=== PATIENT | female | born 2000 | race Caucasian/White ===

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

== ENCOUNTER → 2021-01-07 | Outpatient (CLI) | payer OTHER ==
--- NOTE | 2021-01-07 10:50 | MR ---
MRI brain without contrast HISTORY: Blackout, R55 Multiplanar multisequence imaging to the brain, no comparisons There is no restricted diffusion. There is no hemorrhage or hydrocephalus. Brain signal is remarkable for a small focal area of increased signal on inversion recovery T2-weighted sequences, axial image 15 in the right frontal white matter measuring 6 mm. Corpus callosum, pituitary, cervical medullary j unction, cerebellopontine angles are normal. Inflammatory changes present in the maxillary sinuses, e thmoid air cells. There are expected vascular flow voids noted. IMPRESSION: Nonspecific focus of white matter demyelination of questionable clinical significance. Si nus disease.
== END | disposition home or self-care (01) ==
LOC: RADMRIMAIN 09:05
PROVIDERS: ATTEND Psychiatry & Neurology Neurology
DX: R55 Syncope and collapse (principal)
CPT/HCPCS: 70551

== ENCOUNTER → 2021-02-16 | Outpatient (CLI) | payer OTHER ==
--- NOTE | 2021-02-16 22:16 | CONS ---
CONSULTATION DATE OF SERVICE: 02/16/2021 20-year-old lady has been evaluated in [facility] for significant excessive daytime sleepiness. HISTORY OF PRESENT ILLNESS SLEEP-WAKE EVALUATION: The patient referred sleepiness for a couple of years. SLEEP SCHEDULE: Her sleep schedule on weekdays from midnight until 12 noon/1:00 pm and on weekends from midnight until 4:30 p.m. FALLING ASLEEP: She does have problems with falling asleep, has TV set in bedroom. DURING SLEEP: She usually sleeps on the side position and stomach, she does snore, but nobody did mention that she has episodes of stopped breathing during sleep. She wakes up from sleep 5 times with 2 episodes of nocturia. No history of hypnagogic hallucinations, sleep paralysis or cataplexy. DURING THE DAY/SLEEP WAKE EVALUATION: In the morning during the day after awakenings, the patient wakes up tired, has difficulties to pay attention, falling asleep during the day, has problems with memory, concentration, irritability. [place] Sleepiness Scale is in extremely high range of 21 which include indication of possible sleepiness while stopped a few minutes in traffic light. The patient had history of episodes of stopped breathing during sleep in the past before her tonsils have been removed. After tonsils have been removed, no episodes of stopped breathing has been observed. PAST MEDICAL HISTORY: Positive for ear infection in the past. PAST SURGICAL HISTORY: Tonsillectomy, ear tube insertion in the past. MEDICATIONS: None. SOCIAL HISTORY: Negative for smoking. Alcohol consumption extremely rare. REVIEW OF SYSTEMS: Significant excessive daytime sleepiness, multiple awakenings from sleep. FAMILY HISTORY: Of epilepsy, thyroid problems, mental illness, seizures. PHYSICAL EXAMINATION: GENERAL: lady without distress. BP 107/70, HR 87, RR 15, height 5 feet 5 inches, weight 228.8 pounds, body mass index 37.9, temperature 97.8, oxygen saturation at room air 97%. Oropharynx: Average position of the soft palate. Mallampati 2. Neck is wide 17 inches in circumference. Neck: Supple, no JVD. Thyroid is not palpable. LUNGS: Clear to percussion and to auscultation. Good air exchange. No wheezing or rhonchi. HEART: S1, S2 regular. No murmurs, gallops, or rubs. ABDOMEN: Obese. Body mass index 37.9. Soft and nontender. Bowel sounds are present. No organomegaly appreciated. EXTREMITIES: No clubbing or cyanosis. CHEMIST: Awake, alert, and oriented X3. Cranial nerves 2 to 7 intact. There is no fasciculation or atrophy. noted. No focal deficits observed. IMPRESSION: 1. Mild snoring multiple awakenings from sleep, wide neck, sleepiness, possible obstructive sleep apnea-hypopnea syndrome. 2. Extremely high level of sleepiness. [place] Sleepiness Scale 21. The patient sleeps for 12 hours or more indicate possibility of idiopathic hypersomnia. 3. Obesity, body mass index 37.9. 4. Status post tonsillectomy. 5. Status post ear infection with ear tube insertion. PLAN: 1. Polysomnography for evaluation of patient's breathing during sleep. If sleep study is negative for abnormalities of respiration, multiple sleep latency test for objective evaluation, patient symptoms of sleepiness. 2. CPAP/BiPAP titration if sleep study confirms obstructive sleep apnea-hypopnea syndrome. 3. Preferable position during sleep on the side. 4. No driving if patient feels any sleepiness. 5. I will see patient for follow up visit to explain results of testing and following plan. Thank you very much for referring this patient for consultation. Sincerely, Jerry Cisneros MD, PhD, FAASM Diplomat of [employer] Sleep Medicine Board of [place] [employer] Back Pad Inspector of [facility] [place] CASIE / ROJELIO: [id number] /
== END | disposition home or self-care (01) ==
LOC: SLEEP 15:29
PROVIDERS: ATTEND Internal Medicine
DX: G47.33 Obstructive sleep apnea (adult) (pediatric) (principal); E66.9 Obesity, unspecified; Z68.37 Body mass index [BMI] 37.0-37.9, adult

== ENCOUNTER 2021-09-07 21:33 | Emergency (ER) | payer OTHER ==
[2021-09-07 22:42] VITALS: BP 105/74; PULSE 87; RESP 19; TEMP 98
[2021-09-07] MEDS ORDERED: ACETAMINOPHEN TAB 500 MG TAB PO STA (22:42)
--- NOTE | 2021-09-07 23:01 | XR ---
EXAMINATION TYPE: XR ankle complete LT DATE OF EXAM: 09/07/2021 COMPARISON: NONE HISTORY: Pain TECHNIQUE: 3 views FINDINGS: Ankle mortise is anatomic. I see no fracture nor dislocation. Joint spaces are normal. IMPRESSION: Negative left ankle exam.
--- NOTE | 2021-09-07 23:06 | XR ---
EXAMINATION TYPE: XR foot complete LT DATE OF EXAM: 09/07/2021 COMPARISON: NONE HISTORY: Foot pain TECHNIQUE: 3 views FINDINGS: I see no fracture nor dislocation. Joint spaces are normal. Metatarsals are intact. There a re no erosions. IMPRESSION: Negative left foot exam.
--- NOTE | 2021-09-08 00:55 | ED ---
Lower Extremity Injury HPI - General Chief Complaint: Extremity Injury, Lower Stated Complaint: Left Ankle Injury Time Seen by Provider: 09/08/21 00:33 Source: patient, RN notes reviewed Mode of arrival: wheelchair - History of Present Illness Initial Comments: This is a pleasant 20-year-old female presents in respiratory after she twisted her ankle earlier today when she was walking through a parking lot. She describes inversion type injury. Pain at the lateral aspect of the ankle which is exacerbated by attempted walking and palpation. No distal paresthesias. No distal proximal injury. Patient states she does have weak ankles and tends to sprain them quite often. She can bear weight with increased pain. No headache, no fever or chills, no changes in vision or hearing, no sore throat or difficulty with speech, no neck pain, no chest pain or shortness of breath, no abdominal pain, no nausea or vomiting, no changes in urination or bowel m ovements, no numbness or tingling,, no skin rashes or lesions. - Related Data Previous Rx's Medication Instructions Recorded Acetaminophen [Tylenol] 500 mg PO Q4-6H PRN #24 tab 09/08/21 Ibuprofen [Motrin] 600 mg PO Q8HR PRN #30 tab 09/08/21 Allergies Allergy/AdvReac Type Severity Reaction Status Date / Time No Known Allergies Allergy Verified 09/07/21 22:42 Review of Systems ROS Statement: Those systems with pertinent positive or pertinent negative responses have been documented in the HPI. ROS Other: All systems not noted in ROS Statement are negative. Past Medical History Past Medical History: Asthma Additional Past Medical History / Comment(s): eczema, depression, self harm behaviors History of Any Multi-Drug Resistant Organisms: None Reported Past Surgical History: Ear Surgery, Tonsillectomy Past Psychological History: ADD/ADHD, Anxiety, Depression Smoking Status: Never smoker Past Alcohol Use History: None Reported Past Drug Use History: None Reported General Exam General appearance: alert, in no apparent distress Head exam: Present: atraumatic, normocephalic, normal inspection Eye exam: Present: normal appearance, PERRL, EOMI. Absent: scleral icterus, conjunctival injection, periorbital swelling ENT exam: Present: normal exam, mucous membranes moist Neck exam: Present: normal inspection, full ROM. Absent: tenderness, meningismus, lymphadenopathy Respiratory exam: Present: normal lung sounds bilaterally. Absent: respiratory distress, wheezes, rales, rhonchi, stridor Cardiovascular Exam: Present: regular rate, normal rhythm, normal heart sounds. Absent: systolic murmur, diastolic murmur, rubs, gallop, clicks GI/Abdominal exam: Present: soft, normal bowel sounds. Absent: distended, tenderness, guarding, rebound, rigid Extremities exam: Present: full ROM, tenderness (Patient has tenderness over the ATF ligament. There is mild swelling.), normal capillary refill, joint swelling (Mild bilateral ankle swelling. No break in skin integrity), other (Pedal pulses intact. Distal sensation intact. No distal proximal tenderness. No tenderness to the proximal fifth metatarsal). Absent: normal inspection (Swelling noted), pedal edema, calf tenderness Back exam: Present: normal inspection Neurological exam: Present: alert, oriented X3, CN II-XII intact Psychiatric exam: Present: normal affect, normal mood Skin exam: Present: warm, dry, intact, normal color. Absent: rash Course Vital Signs 09/07/21 22:38 Temperature 98 F Pulse Rate 87 Respiratory 19 Rate Blood Pressure 105/74 O2 Sat by Pulse 100 Oximetry Procedures - Orthopedic Splinting/Casting Injury #1 Side: left Lower Extremity Injury Location: ankle Lower Extremity Immobilizer: stirrup splint Additional Comments: Neurovascular status intact both pre-and post-application Medical Decision Making - Medical Decision Making Patient presents to symptomology consistent with an anterior talofibular ligament sprain. Patient placed and a stirrup splint. Neurovascular intact. Discussed the possibility of occult fracture. We'll treat with anti- inflammatory medication acetaminophen. Rice therapy. Patient voiced understanding. All questions answered Patient was told to return to the ER for any signs or symptoms worsen. Told to return immediately if any other problems arise. All questions answered. Treatment plan discussed. Patient in agreement Every effort has been made to ensure accuracy of this dictation. However, due to the limitations of electronic medical records and dictation devices, errors in charting still occur. Purchasing Coordinator Dr. Juarez - Radiology Data Radiology results: report reviewed, image reviewed Disposition Clinical Impression: Sprain of anterior talofibular ligament of left ankle Disposition: HOME SELF-CARE Condition: Good Instructions (If sedation given, give patient instructions): Ankle Sprain (ED) Additional Instructions: Follow-up with your regular physician as directed. Return to the ER immediately if any symptoms worsen, new symptoms arise, or any other problems develop. Air splint as directed. He can take it off when you're not bearing weight. Apply ice 20 minutes on and off for times daily. If the ankle does not seem to get better over the next several days call the orthopedic doctor as discussed. Prescriptions: Ibuprofen [Motrin] 600 mg PO Q8HR PRN #30 tab PRN Reason: Pain Acetaminophen [Tylenol] 500 mg PO Q4-6H PRN #24 tab PRN Reason: Pain Is patient prescribed a controlled substance at d/c from ED?: No Referrals: Tip English MD [STAFF PHYSICIAN] - 09/15/21 Time of Disposition: 01:03
[2021-09-08] MEDS ORDERED: IBUPROFEN 600 MG TAB PO STA (01:01)
== END 2021-09-08 01:09 | disposition home or self-care (01) ==
LOC: EC 21:33
DX: S93.492A Sprain of other ligament of left ankle, initial encounter (principal); J45.909 Unspecified asthma, uncomplicated; Y92.481 Parking lot as the place of occurrence of the external cause

== ENCOUNTER 2022-03-17 23:09 | Emergency (ER) | payer OTHER ==
[2022-03-18] MEDS ORDERED: SODIUM CHLORIDE 0.9% 1,000 ML IV STA (00:12)
[2022-03-18 00:51] LABS: Basophils % (A) 0 %; Eosinophils # (A) 0.2 k/uL (0-0.7); Eosinophils % (A) 2 %; HCT 39.8 % (34.0-46.0); HGB 13.7 gm/dL (11.4-16.0); Lymphocytes # (A) 1.8 k/uL (1.0-4.8); Lymphocytes % (A) 20 %; MCH 29.4 pg (25.0-35.0); MCHC 34.4 g/dL (31.0-37.0); MCV 85.6 fL (80.0-100.0); Mean Platelet Volume 8.4; Monocytes # (A) 0.6 k/uL (0-1.0); Monocytes % (A) 6 %; Neutrophils # (A) 6.3 k/uL (1.3-7.7); Neutrophils % (A) 70 %; Platelet Count 286 k/uL (150-450); RBC 4.65 m/uL (3.80-5.40); RDW 13.3 % (11.5-15.5); WBC 9.1 k/uL (4.0-11.0)
[2022-03-18 01:00] LABS: INR 0.9 (<1.2); Partial Thromboplastin Time 26.1 sec (22.0-30.0); Prothrombin Time 10.1 sec (9.0-12.0)
[2022-03-18 01:04] LABS: ALT 24 U/L (4-34); AST 22 U/L (14-36); African American GFR (CKD) >90 (>60 ml/min/1.73 sqM); Albumin 4.3 g/dL (3.5-5.0); Alkaline Phosphatase 70 U/L (38-126); Anion Gap 11 mmol/L; Blood Urea Nitrogen 8 mg/dL (7-17); Calcium 9.9 mg/dL (8.4-10.2); Carbon Dioxide 23 mmol/L (22-30); Chloride 102 mmol/L (98-107); Glucose 107 mg/dL (74-99); Non-African American GFR(CKD) >90 (>60 ml/min/1.73 sqM); Sodium 136 mmol/L (137-145); Total Bilirubin 0.4 mg/dL (0.2-1.3)
--- NOTE | 2022-03-18 02:36 | ED ---
General Adult HPI - General Chief complaint: Anxiety Stated complaint: psych Time Seen by Provider: 03/17/22 23:40 Source: patient Mode of arrival: ambulatory - History of Present Illness Initial comments: 21-year-old female with past history of asthma, depression presents emergency department reporting presyncopal episode. She states that she got home from work around 6 PM she was playing Dungeons and Dragons when she had sudden onset of lightheadedness and shakiness. She felt nauseated and ran to the bathroom where she had some dry heaving. She does admit to previous episodes of this in the past. States that she felt like she was "not in control of her body". Patient is 7 weeks . States that she is following with [facility]. She has had laboratory studies conducted however has her first ultrasound appointment on Sunday. Denies dysuria, hematuria or difficulty voiding. No diarrhea, constipation, black or bloody stools. Denies any abnormal vaginal bleeding or discharge. No vaginal cramping. No other alleviating, precipitating or modifying factors - Related Data Previous Rx's Medication Instructions Recorded Acetaminophen [Tylenol] 500 mg PO Q4-6H PRN #24 tab 09/08/21 Ibuprofen [Motrin] 600 mg PO Q8HR PRN #30 tab 09/08/21 Allergies Allergy/AdvReac Type Severity Reaction Status Date / Time No Known Allergies Allergy Verified 09/07/21 22:42 Review of Systems ROS Statement: Those systems with pertinent positive or pertinent negative responses have been documented in the HPI. ROS Other: All systems not noted in ROS Statement are negative. Past Medical History Past Medical History: Asthma Additional Past Medical History / Comment(s): eczema, depression, self harm behaviors History of Any Multi-Drug Resistant Organisms: None Reported Past Surgical History: Ear Surgery, Tonsillectomy Past Psychological History: ADD/ADHD, Anxiety, Depression Smoking Status: Never smoker Past Alcohol Use History: None Reported Past Drug Use History: None Reported General Exam General appearance: alert, in no apparent distress Head exam: Present: atraumatic, normocephalic, normal inspection Eye exam: Present: normal appearance, PERRL, EOMI. Absent: scleral icterus, conjunctival injection, periorbital swelling ENT exam: Present: normal exam, mucous membranes moist Neck exam: Present: normal inspection. Absent: tenderness, meningismus, lymphadenopathy Respiratory exam: Present: normal lung sounds bilaterally. Absent: respiratory distress, wheezes, rales, rhonchi, stridor Cardiovascular Exam: Present: regular rate, normal rhythm, normal heart sounds. Absent: systolic murmur, diastolic murmur, rubs, gallop, clicks GI/Abdominal exam: Present: soft, normal bowel sounds. Absent: distended, tenderness, guarding, rebound, rigid Extremities exam: Present: normal inspection, full ROM, normal capillary refill. Absent: tenderness, pedal edema, joint swelling, calf tenderness Back exam: Present: normal inspection Neurological exam: Present: alert, oriented X3, CN II-XII intact Psychiatric exam: Present: normal affect, normal mood Skin exam: Present: warm, dry, intact, normal color. Absent: rash Course Vital Signs 03/17/22 03/18/22 23:35 02:54 Temperature 98 F 98.4 F Pulse Rate 98 84 Respiratory 17 16 Rate Blood Pressure 133/87 118/57 O2 Sat by Pulse 99 98 Oximetry EKG Findings - EKG Comments: EKG Findings:: EKG at 2:14 AM demonstrates sinus rhythm with a rate of 78. [place] interval 162. QRS 92. QTC 416. No acute ST segment elevations or depressions concerning for ischemic changes EKG was interpreted by myself Medical Decision Making - Medical Decision Making Upon arrival patient was placed into room 3. A thorough history and physical exam was performed. Patient placed on continuous pulse ox and cardiac monitoring. A 12-lead EKG is obtained. Laboratory studies are conducted. She was given a liter bolus of normal saline. Laboratory studies are reviewed and within normal limits. 12 EKG unremarkable. Discuss results with the patient. Patient is agreeable to discharge home at this time. Instructed to rest, increase fluid intake. Follow up with her OB at her appointment next week and return for any new or worsening symptoms. Patient agreeable to the plan and she was discharged home in stable condition - Lab Data Result diagrams: 03/18/22 00:41 03/18/22 00:41 Lab Results 03/18/22 03/18/22 03/18/22 Range/Units 00:41 00:41 00:41 WBC 9.1 (4.0-11.0) k/uL RBC 4.65 (3.80-5.40) m/uL Hgb 13.7 (11.4-16.0) gm/dL Hct 39.8 (34.0-46.0) % MCV 85.6 (80.0-100.0) fL MCH 29.4 (25.0-35.0) pg MCHC 34.4 (31.0-37.0) g/dL RDW 13.3 (11.5-15.5) % Plt Count 286 (150-450) k/uL MPV 8.4 Neutrophils % 70 % Lymphocytes % 20 % Monocytes % 6 % Eosinophils % 2 % Basophils % 0 % Neutrophils # 6.3 (1.3-7.7) k/uL Lymphocytes # 1.8 (1.0-4.8) k/uL Monocytes # 0.6 (0-1.0) k/uL Eosinophils # 0.2 (0-0.7) k/uL Basophils # 0.0 (0-0.2) k/uL PT 10.1 (9.0-12.0) sec INR 0.9 (<1.2) APTT 26.1 (22.0-30.0) sec Sodium 136 L (137-145) mmol/L Potassium 4.0 (3.5-5.1) mmol/L Chloride 102 (98-107) mmol/L Carbon Dioxide 23 (22-30) mmol/L Anion Gap 11 mmol/L BUN 8 (7-17) mg/dL Creatinine 0.59 (0.52-1.04) mg/dL Est GFR (CKD-EPI)AfAm >90 (>60 ml/min/1.73 sqM) Est GFR (CKD-EPI)NonAf >90 (>60 ml/min/1.73 sqM) Glucose 107 H (74-99) mg/dL Calcium 9.9 (8.4-10.2) mg/dL Magnesium 2.0 (1.6-2.3) mg/dL Total Bilirubin 0.4 (0.2-1.3) mg/dL AST 22 (14-36) U/L ALT 24 (4-34) U/L Alkaline Phosphatase 70 (38-126) U/L Troponin I (0.000-0.034) ng/mL Total Protein 7.0 (6.3-8.2) g/dL Albumin 4.3 (3.5-5.0) g/dL 03/18/22 Range/Units 00:41 WBC (4.0-11.0) k/uL RBC (3.80-5.40) m/uL Hgb (11.4-16.0) gm/dL Hct (34.0-46.0) % MCV (80.0-100.0) fL MCH (25.0-35.0) pg MCHC (31.0-37.0) g/dL RDW (11.5-15.5) % Plt Count (150-450) k/uL MPV Neutrophils % % Lymphocytes % % Monocytes % % Eosinophils % % Basophils % % Neutrophils # (1.3-7.7) k/uL Lymphocytes # (1.0-4.8) k/uL Monocytes # (0-1.0) k/uL Eosinophils # (0-0.7) k/uL Basophils # (0-0.2) k/uL PT (9.0-12.0) sec INR (<1.2) APTT (22.0-30.0) sec Sodium (137-145) mmol/L Potassium (3.5-5.1) mmol/L Chloride (98-107) mmol/L Carbon Dioxide (22-30) mmol/L Anion Gap mmol/L BUN (7-17) mg/dL Creatinine (0.52-1.04) mg/dL Est GFR (CKD-EPI)AfAm (>60 ml/min/1.73 sqM) Est GFR (CKD-EPI)NonAf (>60 ml/min/1.73 sqM) Glucose (74-99) mg/dL Calcium (8.4-10.2) mg/dL Magnesium (1.6-2.3) mg/dL Total Bilirubin (0.2-1.3) mg/dL AST (14-36) U/L ALT (4-34) U/L Alkaline Phosphatase (38-126) U/L Troponin I <0.012 (0.000-0.034) ng/mL Total Protein (6.3-8.2) g/dL Albumin (3.5-5.0) g/dL Disposition Clinical Impression: Pre-syncope Disposition: HOME SELF-CARE Condition: Stable Instructions (If sedation given, give patient instructions): Near Syncope (ED) Additional Instructions: Please follow-up with your primary care doctor in 2-4 days and return for any new or worsening symptoms. Is patient prescribed a controlled substance at d/c from ED?: No Referrals: None,Stated [Primary Care Provider] - 1-2 days Time of Disposition: 02:36
[2022-03-18 02:55] VITALS: BP 118/57; PULSE 84; RESP 16; TEMP 98.4
== END 2022-03-18 02:54 | disposition home or self-care (01) ==
LOC: EC 23:09
DX: O26.811 Pregnancy related exhaustion and fatigue, first trimester (principal); O99.511 Diseases of the respiratory system complicating pregnancy, first trimester; O99.341 Other mental disorders complicating pregnancy, first trimester; R55 Syncope and collapse; J45.909 Unspecified asthma, uncomplicated; F41.9 Anxiety disorder, unspecified; F32.A Depression, unspecified; Z3A.01 Less than 8 weeks gestation of pregnancy
CPT/HCPCS: 36415; 80053; 83735; 84484; 85025; 85610; 85730; 99284

== ENCOUNTER 2022-07-09 22:50 | Outpatient (CLI) | payer OTHER ==
[2022-07-09] MEDS ORDERED: ACETAMINOPHEN TAB 325 MG TAB PO STA (23:37)
[2022-07-09 23:51] LABS: Basophils % (A) 0 %; Eosinophils # (A) 0.1 k/uL (0-0.7); Eosinophils % (A) 1 %; HCT 34.5 % (34.0-46.0); Lymphocytes # (A) 2.1 k/uL (1.0-4.8); Lymphocytes % (A) 19 %; MCH 30.5 pg (25.0-35.0); MCHC 34.8 g/dL (31.0-37.0); MCV 87.5 fL (80.0-100.0); Mean Platelet Volume 8.3; Monocytes # (A) 0.5 k/uL (0-1.0); Monocytes % (A) 5 %; Neutrophils # (A) 8.2 k/uL (1.3-7.7); Neutrophils % (A) 74 %; Platelet Count 283 k/uL (150-450); RBC 3.94 m/uL (3.80-5.40); RDW 14.4 % (11.5-15.5); WBC 11.1 k/uL (4.0-11.0)
[2022-07-10 00:08] LABS: ALT 15 U/L (4-34); African American GFR (CKD) >90 (>60 ml/min/1.73 sqM); Amylase 42 U/L (30-110); Anion Gap 9 mmol/L; Blood Urea Nitrogen 7 mg/dL (7-17); Calcium 8.9 mg/dL (8.4-10.2); Carbon Dioxide 21 mmol/L (22-30); Chloride 105 mmol/L (98-107); Glucose 81 mg/dL (74-99); Lipase 46 U/L (23-300); Non-African American GFR(CKD) >90 (>60 ml/min/1.73 sqM); Sodium 135 mmol/L (137-145); Total Bilirubin 0.5 mg/dL (0.2-1.3)
[2022-07-10 00:15] LABS: AST 21 U/L (14-36); Alkaline Phosphatase 60 U/L (38-126); Potassium 4.3 mmol/L (3.5-5.1)
[2022-07-10 00:40] VITALS: BP 122/71; PULSE 88; RESP 16; TEMP 97.3
== END 2022-07-10 00:30 | disposition home or self-care (01) ==
LOC: FBPOP 22:50
PROVIDERS: ATTEND Obstetrics & Gynecology
DX: O26.893 Other specified pregnancy related conditions, third trimester (principal); R10.11 Right upper quadrant pain; Z3A.00 Weeks of gestation of pregnancy not specified
CPT/HCPCS: 36415; 86900; 86901; 80053; 82150; 83690; 85025; 86850; G0463; 99213

== ENCOUNTER 2022-10-31 08:02 | Inpatient (IN) | payer OTHER ==
[2022-10-31] MEDS ORDERED: TERBUTALINE 1 MG/ML VIAL SQ PRN (08:21)
[2022-10-31] MEDS ORDERED: METHYLERGONOVINE 0.2 MG/ML 1 ML AMP IM PRN (08:21)
[2022-10-31] MEDS ORDERED: CARBOPROST TROMETHAMINE 250 MCG/ML 1 ML AMP IM PRN (08:21)
[2022-10-31] MEDS ORDERED: OXYTOCIN 10 UNIT/ML 1 ML VIAL IM PRN (08:21)
[2022-10-31] MEDS ORDERED: miSOPROStoL 200 MCG TAB PO PRN (08:21)
[2022-10-31] MEDS ORDERED: TRANEXAMIC 1,000 MG/100ML-NACL 1,000 MG in EMPTY BAG 1 BAG IV PRN (08:21)
[2022-10-31] MEDS ORDERED: LIDOCAINE 0.5% (PF) 5 MG/ML (50 ML SDV) SQ PRN (08:21)
[2022-10-31] MEDS ORDERED: OXYTOCIN 30 UNITS/500 ML NS 30 UNIT in SALINE 1 500ML.BAG IV SCH ×2 (08:30→19:15)
[2022-10-31] MEDS: LACTATED RINGERS 1,000 ML IV SCH ×3 (08:52→14:53)
[2022-10-31 09:08] LABS: Basophils % (A) 0 %; Eosinophils # (A) 0.1 k/uL (0-0.7); Eosinophils % (A) 1 %; HCT 34.3 % (34.0-46.0); HGB 11.4 gm/dL (11.4-16.0); Lymphocytes # (A) 1.8 k/uL (1.0-4.8); Lymphocytes % (A) 19 %; MCH 28.4 pg (25.0-35.0); MCHC 33.1 g/dL (31.0-37.0); MCV 85.9 fL (80.0-100.0); Mean Platelet Volume 10.7; Monocytes # (A) 0.5 k/uL (0-1.0); Monocytes % (A) 5 %; Neutrophils # (A) 7.2 k/uL (1.3-7.7); Neutrophils % (A) 74 %; Platelet Count 223 k/uL (150-450); RBC 3.99 m/uL (3.80-5.40); RDW 14.1 % (11.5-15.5); WBC 9.7 k/uL (3.8-10.6)
--- NOTE | 2022-10-31 11:59 | P.HPOB ---
History of Present Illness H&P Date: 10/31/22 Chief Complaint: 39-6/7 weeks, spontaneous rupture of membranes, labor The patient is a 22-year-old 1 para 0 admitted at 39-6/7 weeks as established by last menstrual period and confirmed by 21 week ultrasound. She is admitted in early labor with spontaneous rupture of membranes confirmed, clear fluid, with all signs reassuring, category 1 heart rate tracing. Her has been essentially uncomplicated though she is Rh- and received RhoGAM at 28 weeks. She additionally is known to be rubella nonimmune. Obstetrical history: 1 para 0 with current statistics listed in history present illness. EDC of 11/01/2022 was established by last menstrual period and confirmed by 21 week ultrasound. Laboratory workup demonstrates a blood type of A- with a negative antibody screen. Rubella status is nonimmune. Remainder of the laboratory workup was within normal limits. Early Glucola and second trimester Glucola were both normal. Group B strep status is negative. Gynecologic history: Unremarkable with no history of any infections to include STDs. Review of Systems Review of systems is confined to history of present illness. Past Medical History Past Medical History: Asthma Additional Past Medical History / Comment(s): eczema, depression, self harm behaviors History of Any Multi-Drug Resistant Organisms: None Reported Past Surgical History: Ear Surgery, Tonsillectomy Past Anesthesia/Blood Transfusion Reactions: No Reported Reaction Past Psychological History: ADD/ADHD, Anxiety, Depression Smoking Status: Never smoker Past Alcohol Use History: None Reported Past Drug Use History: None Reported - Past Family History Mother Family Medical History: Diabetes Mellitus Medications and Allergies Home Medications Medication Instructions Recorded Confirmed Type Pnv No.154/Iron Fum/Folic Acid 1 capsule PO DAILY 07/09/22 10/31/22 History [ Plus Vitamin Tablet] Allergies Allergy/AdvReac Type Severity Reaction Status Date / Time No Known Allergies Allergy Verified 10/31/22 08:16 Exam Vital Signs Temp Pulse Resp BP Pulse Ox 10/31/22 08:51 97.4 F L 65 18 132/84 97 Intake and Output 10/30/22 10/31/22 10/31/22 22:59 06:59 14:59 Other: Weight 118.841 kg In general, this is a moderately obese white female in no acute distress. Her heart has a regular rhythm and rate without murmur. Her lungs are clear to auscultation bilaterally in all sarmiento. Her abdomen is gravid, nondistended, has normal active bowel sounds, soft, nontender, and without any palpable masses aside from uterine fundus. Her extremities are without any cyanosis, clubbing, or edema and are nontender to palpation bilaterally. Digital cervical examination demonstrates her cervix to be 3 cm dilated, 80% effaced, with the vertex in presentation at -2 station. Spontaneous rupture of membranes has been confirmed. Results Result Diagrams: 10/31/22 08:50 Assessment and Plan (1) Spontaneous rupture of amniotic membranes Current Visit: Yes Status: Acute Code(s): [id number] - SNOMED Code(s): 562346884 (2) Active labor at term Current Visit: Yes Status: Acute Code(s): RTW6777 - SNOMED Code(s): 13527843 Plan: The patient has been admitted for active management of labor. She will have close maternal and surveillance and expectant management will be practiced. She is a good candidate for either IV or epidural analgesia, whichever she may choose. We will start Pitocin augmentation at this time.
[2022-10-31] MEDS ORDERED: ROPIVACAINE 5 MG/ML 20 ML AMPULE ONE (13:30)
[2022-10-31] MEDS ORDERED: fentaNYL (PF) 50 MCG/ML 5 ML AMP ONE (13:30)
[2022-10-31] MEDS ORDERED: SODIUM CHLORIDE 0.9% 100 ML BAG ONE (13:30)
[2022-10-31] MEDS ORDERED: diphenhydrAMINE 25 MG CAP PO PRN (19:06)
[2022-10-31] MEDS ORDERED: diphenhydrAMINE 50 MG CAP PO PRN (19:06)
[2022-10-31] MEDS ORDERED: LANOLIN CREAM 5 GM TUBE TOPICAL PRN (19:06)
[2022-10-31] MEDS ORDERED: Rhogam IMMUNE GLOBULIN 1,500 UNIT/1 ML IM ONE (19:06)
[2022-10-31] MEDS ORDERED: diphenhydrAMINE 50 MG/ML 1 ML VIAL IVP PRN ×2 (19:06)
[2022-10-31] MEDS ORDERED: SIMETHICONE 80 MG CHEWABLE PO PRN (19:06)
[2022-10-31] MEDS ORDERED: HYDROCORTISONE 2.5% RECTAL CREAM 30 GM TUBE RECTAL PRN (19:06)
[2022-10-31] MEDS ORDERED: ZOLPIDEM 5 MG TAB PO PRN (19:06)
[2022-10-31] MEDS ORDERED: BENZOCAINE/MENTHOL SPRAY 1 GM/SPRAY AEROSOL TOPICAL PRN (19:06)
--- NOTE | 2022-10-31 19:16 | P.PROBDLV ---
Vaginal Delivery Note - . Vaginal Delivery Note: DATE OF SERVICE: 10/31/2022 PROCEDURE: Normal Vaginal Delivery ATTENDING: Dr. July Nath MD ESTIMATED BLOOD LOSS: 200 mL FINDINGS: VFI, Apgars 9/9. Weight 7 pounds, 5 ounces (3320 grams) PROCEDURE: Ms. Galan is a 22 year old at 39 weeks and 2 days presenting to labor and delivery after spontaneous rupture of membranes and found to be 3 centimeters dilated with regular contractions. The has been uncomplicated. For further details, please review the admitting H&P. Pitocin augmentation of labor was started. The patient progressed to complete dilation by 175. She pushed effectively and delivered the head over an intact perineum followed by shoulders and body. A viable female infant was delivered at 1816. The was placed on the maternal abdomen and bulb suctioned. Cord was clamped and cut after a 30-second delay. The was handed off to the pediatric team. Placenta was delivered whole with gentle cord traction at 1818. Oxytocin was started to facilitate uterine tone. Uterine fundus was found to be firm and below the umbilicus upon fundal massage. Thorough examination of the cervix, vagina, periurethral area, and perineum revealed a left labial laceration and a left sulcal laceration. These were repaired with 3-0 Vicryl in a running fashion with excellent hemostasis noted. The patient is stable and allowed to begin the bonding process. Patient stable .
[2022-10-31] MEDS: IBUPROFEN 600 MG TAB PO PRN (19:55)
[2022-10-31] MEDS ORDERED: MEASLES-MUMPS-RUBELLA VACC/PF 12,500 UNIT/0.5 ML VIAL SQ ONE (22:17)
[2022-10-31] MEDS: SENNOSIDES-DOCUSATE SODIUM 1 EACH TAB PO SCH (22:23)
[2022-11-01] MEDS: ACETAMINOPHEN TAB 325 MG TAB PO PRN ×2 (00:16→06:41)
[2022-11-01] MEDS: IBUPROFEN 600 MG TAB PO PRN ×3 (03:10→15:25)
[2022-11-01 08:01] LABS: Basophils % (A) 0 %; Eosinophils # (A) 0.1 k/uL (0-0.7); Eosinophils % (A) 1 %; HCT 26.3 % (34.0-46.0); HGB 8.9 gm/dL (11.4-16.0); Hypochromasia Slight; Lymphocytes # (A) 1.5 k/uL (1.0-4.8); Lymphocytes % (A) 15 %; MCH 29.1 pg (25.0-35.0); MCHC 33.9 g/dL (31.0-37.0); MCV 85.8 fL (80.0-100.0); Mean Platelet Volume 11.2; Monocytes # (A) 0.7 k/uL (0-1.0); Monocytes % (A) 7 %; Neutrophils # (A) 7.9 k/uL (1.3-7.7); Neutrophils % (A) 76 %; Platelet Count 182 k/uL (150-450); RBC 3.06 m/uL (3.80-5.40); RDW 14.3 % (11.5-15.5); WBC 10.4 k/uL (3.8-10.6)
--- NOTE | 2022-11-01 08:33 | P.DS ---
Providers Date of admission: 10/31/22 08:32 Expected date of discharge: 11/01/22 Attending physician: Keny Castañeda Primary care physician: Stated None - Discharge Diagnosis(es) (1) Spontaneous rupture of amniotic membranes Current Visit: Yes Status: Acute (2) Active labor at term Current Visit: Yes Status: Acute (3) FTND (full term normal delivery) Current Visit: Yes Status: Acute Hospital Course: Patient is a 22-year-old 1 para 0 admitted at 39-6/7 weeks by good dating parameters. She is admitted with documented spontaneous rupture of membranes for clear fluid. All signs reassuring with a category 1 heart rate tracing. Her was uncomplicated though she was Rh- and is additionally rubella nonimmune. Group B strep status is negative. On labor and delivery, she had Pitocin augmentation started and an epidural catheter placed for analgesia. She ultimately progressed to complete and then pushed to a normal spontaneous vaginal delivery of a viable 7 lbs. 5 oz. baby girl with Apga rs of 9 at 1 minute and 9 at 5 minutes. Her course was unremarkable with vital signs being stable and her temperature was afebrile throughout. She was deemed stable for discharge on day #1 was discharged home to follow-up in the office in 6 weeks' time routinely. Discharge instructions included calling for any significantly increased bleeding or foul-smelling lochia, significantly increased fever or abdominal pain, perineal complaints, breast complaints, or anything also concerned her. She was additionally instructed to have nothing in the vagina for at least 6 weeks time to include intercourse. She understood her instructions and agrees to follow up as noted above. Maternal blood type is A- and cord blood was sent for evaluation for the necessity of RhoGAM prior to discharge. Rubella status is nonimmune. The patient was therefore to receive the MMR vaccination prior to discharge. Procedures: #1. Pitocin augmentation #2. Epidural analgesia #3. Normal spontaneous vaginal delivery #4. Repair of labial and sulcus laceration Patient Condition at Discharge: Stable Plan - Discharge Summary New Discharge Prescriptions: No Action Pnv No.154/Iron Fum/Folic Acid [ Plus Vitamin Tablet] 1 capsule PO DAILY Discharge Medication List Pnv No.154/Iron Fum/Folic Acid [ Plus Vitamin Tablet] 1 capsule PO DAILY 07/09/22 [History] Follow up Appointment(s)/Referral(s): Keny Castañeda MD [STAFF PHYSICIAN] - 1 Week Discharge Disposition: HOME SELF-CARE
[2022-11-01] MEDS: SENNOSIDES-DOCUSATE SODIUM 1 EACH TAB PO SCH ×2 (08:44→21:25)
[2022-11-01 15:30] VITALS: BP 108/77; PULSE 86; RESP 15; TEMP 98.2
== END 2022-11-01 21:05 | disposition home or self-care (01) | DRG 560 ==
LOC: FBPOP 08:02 → 4FBP 08:32
PROVIDERS: ADMIT Obstetrics & Gynecology; ATTEND Obstetrics & Gynecology
PROC: 0HQ9XZZ Repair Perineum Skin, External Approach (ICD-10-PCS; principal; 2022-10-31)
PROC: 10E0XZZ Delivery of Products of Conception, External Approach (ICD-10-PCS; principal; 2022-10-31)
PROC: 3E0134Z Introduction of Serum, Toxoid and Vaccine into Subcutaneous Tissue, Percutaneous Approach (ICD-10-PCS; 2022-11-01)
DX: O26.893 Other specified pregnancy related conditions, third trimester (principal); O99.344 Other mental disorders complicating childbirth; F32.A Depression, unspecified; F90.9 Attention-deficit hyperactivity disorder, unspecified type; F41.9 Anxiety disorder, unspecified; O70.0 First degree perineal laceration during delivery; Z67.11 Type A blood, Rh negative; O99.52 Diseases of the respiratory system complicating childbirth; J45.909 Unspecified asthma, uncomplicated; O99.214 Obesity complicating childbirth; E66.9 Obesity, unspecified; Z91.52 Personal history of nonsuicidal self-harm; Z23 Encounter for immunization; Z3A.39 39 weeks gestation of pregnancy; Z37.0 Single live birth
CPT/HCPCS: 59025; 84112; 85025; 86850; 86900; 86901; 90707; 99213

== ENCOUNTER 2022-12-03 10:53 | Emergency (ER) | payer OTHER ==
[2022-12-03 11:35] LABS: Basophils % (A) 0 %; Eosinophils # (A) 0.1 k/uL (0-0.7); Eosinophils % (A) 1 %; HCT 39.8 % (34.0-46.0); Lymphocytes # (A) 1.8 k/uL (1.0-4.8); Lymphocytes % (A) 24 %; MCH 26.8 pg (25.0-35.0); MCHC 32.4 g/dL (31.0-37.0); MCV 82.7 fL (80.0-100.0); Mean Platelet Volume 8.1; Monocytes # (A) 0.4 k/uL (0-1.0); Monocytes % (A) 5 %; Neutrophils # (A) 4.9 k/uL (1.3-7.7); Neutrophils % (A) 67 %; Platelet Count 346 k/uL (150-450); RBC 4.81 m/uL (3.80-5.40); RDW 14.1 % (11.5-15.5); WBC 7.2 k/uL (3.8-10.6)
[2022-12-03 11:42] LABS: HGB 12.9 gm/dL (11.4-16.0)
[2022-12-03 11:44] LABS: Sodium 138 mmol/L (137-145)
[2022-12-03 11:45] LABS: AST 524 U/L (14-36); African American GFR (CKD) >90 (>60 ml/min/1.73 sqM); Albumin 4.5 g/dL (3.5-5.0); Alkaline Phosphatase 408 U/L (38-126); Amylase 47 U/L (30-110); Anion Gap 13 mmol/L; Blood Urea Nitrogen 8 mg/dL (7-17); Calcium 9.6 mg/dL (8.4-10.2); Carbon Dioxide 23 mmol/L (22-30); Chloride 102 mmol/L (98-107); Glucose 120 mg/dL (74-99); Lipase 148 U/L (23-300); Non-African American GFR(CKD) >90 (>60 ml/min/1.73 sqM); Potassium 3.9 mmol/L (3.5-5.1); Total Bilirubin 2.3 mg/dL (0.2-1.3); Total Protein 7.6 g/dL (6.3-8.2)
[2022-12-03] MEDS ORDERED: KETOROLAC 15 MG/ML 1 ML VIAL IVP STA (11:48)
[2022-12-03] MEDS ORDERED: ONDANSETRON 4 MG/2 ML VIAL IVP STA (11:48)
[2022-12-03] MEDS ORDERED: SODIUM CHLORIDE 0.9% 1,000 ML IV STA (11:48)
--- NOTE | 2022-12-03 11:50 | ED ---
Chest Pain HPI - General Chief Complaint: Chest Pain Stated Complaint: Chest/Abd Pain, 4wks post partm Time Seen by Provider: 12/03/22 11:10 Source: patient Mode of arrival: ambulatory Limitations: no limitations - History of Present Illness Initial Comments: 22-year-old female presents to ED with a chief complaint of abdominal pain. Patient states 4 days ago onset of right upper abdominal pain, nausea, vomiting. States she has been unable to keep anything down for the past 4 days due to symptoms. No known association food intake due to her being unable to keep food down. Denies urinary symptoms. Denies diarrhea or constipation. Additionally, patient notes she has history of upper respiratory infection last week where she had a cough. States now cough is resolved however notes over the past 4 days has also had mid chest pain that is sharp in nature. States pain is worse with movement/deep breath. Denies shortness of breath. No other complaints. - Related Data Home Medications Medication Instructions Recorded Confirmed Pnv No.154/Iron Fum/Folic Acid 1 capsule PO DAILY 07/09/22 10/31/22 [ Plus Vitamin Tablet] Previous Rx's Medication Instructions Recorded Ibuprofen [Motrin] 600 mg PO Q8HR PRN #20 tab 12/03/22 Ondansetron [Zofran] 4 mg PO Q8HR PRN #12 tab 12/03/22 Allergies Allergy/AdvReac Type Severity Reaction Status Date / Time No Known Allergies Allergy Verified 12/03/22 11:03 Review of Systems ROS Statement: Those systems with pertinent positive or pertinent negative responses have been documented in the HPI. ROS Other: All systems not noted in ROS Statement are negative. Past Medical History Past Medical History: Asthma Additional Past Medical History / Comment(s): eczema, depression, self harm behaviors History of Any Multi-Drug Resistant Organisms: None Reported Past Surgical History: Ear Surgery, Tonsillectomy Past Anesthesia/Blood Transfusion Reactions: No Reported Reaction Past Psychological History: ADD/ADHD, Anxiety, Depression Smoking Status: Never smoker Past Alcohol Use History: None Reported Past Drug Use History: None Reported - Past Family History Mother Family Medical History: Diabetes Mellitus General Exam Limitations: no limitations General appearance: alert, in no apparent distress ENT exam: Present: mucous membranes moist Respiratory exam: Present: normal lung sounds bilaterally, other (Reproducible mid sternal chest wall tenderness to palpation.) Cardiovascular Exam: Present: regular rate, normal rhythm GI/Abdominal exam: Present: soft (Diffuse abdominal tenderness to palpation worse in the right upper quadrant with positive Kitchen sign.), normal bowel sounds Neurological exam: Present: alert, oriented X3 Skin exam: Present: warm, dry Course Vital Signs 12/03/22 12/03/22 12/03/22 10:58 11:32 12:07 Temperature 97.6 F Pulse Rate 68 58 L 52 L Respiratory 18 20 17 Rate Blood Pressure 143/93 138/96 145/89 O2 Sat by Pulse 100 100 99 Oximetry 12/03/22 14:14 Temperature 98.4 F Pulse Rate 65 Respiratory 18 Rate Blood Pressure 130/83 O2 Sat by Pulse 98 Oximetry Chest Pain MDM - MDM Was pt. sent in by a medical professional or institution ([facility], [facility], urgent care, hospital, or shelter...) When possible be specific @ -No Did you speak to anyone other than the patient for history (EMS, parent, family, police, friend...)? What history was obtained from this source @ -No Did you review nursing and triage notes (agree or disagree)? Why? @ -I reviewed and agree with nursing and triage notes Were old charts reviewed (outside hosp., previous admission, EMS record, old EKG, old radiological studies, urgent care reports/EKG's, shelter records)? Report findings @ -No old charts were reviewed Differential Diagnosis (chest pain, altered mental status, abdominal pain women, abdominal pain men, vaginal bleeding, weakness, fever, dyspnea, syncope, headache, dizziness, GI bleed, back pain, seizure, CVA, palpatations, mental health, musculoskeletal)? @ -Differential Abdominal Pain Women: Appendicitis, Cholecystitis, diverticulosis, ischemic bowel, pancreatitis, hepatitis, UTI, gastroenteritis, AAA, incarcerated hernia, bowel obstruction, constipation, inflammatory bowel, hepatitis, peptic ulcer disease, splenic infarction, perforated viscus, vulvitis, ovarian torsion, PID, kidney stone, placenta abruption, this is not meant to be an all-inclusive list Differential Chest Pain: Stable Angina, Unstable Angina, STEMI, NSTEMI Aortic Dissection, Pneumothorax, Musculoskeletal, Esophageal Spasm GERD, Cholecystitis, Pancreatitis, Zoster, this is not meant to be an all-inclusive list. EKG interpreted by me (3pts min.). @ -EKG shows a sinus bradycardia at [address] or T-wave changes. SC 147, QRS 94, QT/QTc 437/431. X-rays interpreted by me (1pt min.). @ -None done CT interpreted by me (1pt min.). @ -None done U/S interpreted by me (1pt. min.). @ -Ultrasound significant for cholelithiasis borderline wall thickening. Common bile duct dilated. What testing was considered but not performed or refused? (CT, X-rays, U/S, labs)? Why? @ -None What meds were considered but not given or refused? Why? @ -None Did you discuss the management of the patient with other professionals (professionals i.e. , PA, [facility], lab, RT, psych nurse, psychotherapist social worker, auto dealer, teacher, security public safety officer, manager of case)? Give summary @ -No Was smoking cessation discussed for >3mins.? @ -No Was critical care preformed (if so, how long)? @ -No Were there social determinants of health that impacted care today? How? (Homelessness, low income, unemployed, alcoholism, drug addiction, transportation, low edu. Level, literacy, decrease access to med. care, longterm, rehab)? @ -No Was there de-escalation of care discussed even if they declined (Discuss DNR or withdrawal of care, Hospice)? DNR status @ -No What co-morbidities impacted this encounter? (DM, HTN, Smoking, COPD, CAD, Cancer, CVA, ARF, Chemo, Hep., AIDS, mental health diagnosis, sleep apnea, morbid obesity)? @ -None Was patient admitted / discharged? Hospital course, mention meds given and route, prescriptions, significant lab abnormalities, going to OR and other pertinent info. @ -Discharge. Laboratory studies significant for elevated bilirubin at 2.3, AST 524, ALT 777, alk phos 408. Otherwise, laboratory studies unremarkable. Ultrasound showed cholelithiasis with common bile duct dilation. At this time, pain well controlled. Discharged home with follow-up to surgery. Advised supportive care and low fat diet. In regards to patient's chest pain, chest pain was reproducible on palpation. EKG showed no acute ST or T-wave changes. Troponin negative. Discussed return precautions with patient who verbalizes agreement. Undiagnosed new problem with uncertain prognosis? @ -No Drug Therapy requiring intensive monitoring for toxicity (Heparin, Nitro, Insulin, Cardizem)? @ -No Were any procedures done? @ -No Diagnosis/symptom? @ -Cholelithiasis, Chest wall pain Acute, or Chronic, or Acute on Chronic? @ -Acute Uncomplicated (without systemic symptoms) or Complicated (systemic symptoms)? @ -Uncomplicated Side effects of treatment? @ -No Exacerbation, Progression, or Severe Exacerbation? @ -No Poses a threat to life or bodily function? How? (Chest pain, [place], [place], pneumonia, PE, COPD, DKA, ARF, appy, cholecystitis, CVA, Diverticulitis, Homicidal, Suicidal, threat to staff... and all critical care pts) @ -No Disposition Clinical Impression: Cholelithiasis Disposition: HOME SELF-CARE Condition: Good Instructions (If sedation given, give patient instructions): Chest Pain (ED), Biliary Colic (ED), Gallstones (ED) Additional Instructions: Please return to the Emergency Department if symptoms worsen or any other concerns. Follow up with surgery. Continue with a low-fat diet. Prescriptions: Ibuprofen [Motrin] 600 mg PO Q8HR PRN #20 tab PRN Reason: Pain Ondansetron [Zofran] 4 mg PO Q8HR PRN #12 tab PRN Reason: Nausea Is patient prescribed a controlled substance at d/c from ED?: No Referrals: None,Stated [Primary Care Provider] - 1-2 days Vikas Shine MD [Medical Doctor] - 1-2 days Time of Disposition: 14:24
[2022-12-03 11:54] LABS: ALT 777 U/L (4-34)
[2022-12-03 12:02] LABS: INR 0.9 (<1.2); Partial Thromboplastin Time 23.6 sec (22.0-30.0); Prothrombin Time 9.8 sec (9.0-12.0)
--- NOTE | 2022-12-03 13:56 | US ---
EXAMINATION TYPE: US gallbladder DATE OF EXAM: 12/03/2022 COMPARISON: NONE CLINICAL INDICATION: Female, 22 years old with history of r/o davie; RUQ pain x 4 days TECHNIQUE: Multiple sonographic images of the right upper quadrant are obtained. FINDINGS: EXAM MEASUREMENTS: Liver Length: 17.2 cm Gallbladder Wall: 0.3 cm CBD: 1.1 cm Right Kidney: 11.4x3.8x4.3 cm HAIR DESIGNER NOTES: Pancreas: Tail obscured by overlying bowel gas Liver: increased size and echogenicity Gallbladder: distended with several dependent gravel like stones Evidence for sonographic Kitchen's sign: No, transducer tenderness but not specific to GB area CBD: enlarged Right Kidney: wnl, arterial calcifications throughout exam slightly limited by bowel gas and body habitus IMPRESSION: 1. Cholelithiasis with borderline wall thickening. Common bile duct is dilated. No pericholecystic fl uid seen. 2. Hepatomegaly with underlying hepatic steatosis.
[2022-12-03 14:14] VITALS: BP 130/83; PULSE 65; RESP 18; TEMP 98.4
[2022-12-03] MEDS ORDERED: IBUPROFEN 600 MG STARTER PACK 4 TAB BTL PO STA (14:28)
[2022-12-03] MEDS ORDERED: ONDANSETRON 4 MG ODT STARTER PACK 2 TAB BTL PO STA (14:28)
[2022-12-03 14:39] LABS: Appearance,Urine Clear (Clear); Bilirubin,Urine Negative (Negative); Blood,Urine Large (Negative); Color,Urine Yellow; Glucose,Urine (UA) Negative (Negative); Ketones,Urine Negative (Negative); Leukocyte Esterase,Urine Negative (Negative); Nitrite,Urine Negative (Negative); PH, Urine 7.5 (5.0-8.0); Protein,Urine Trace (Negative); RBC,Urine >182 /hpf (0-5); Specific Gravity,Urine 1.008 (1.001-1.035); Squamous Epithelial Cell,Urine 1 /hpf (0-4); Urobilinogen,Urine <2.0 mg/dL (<2.0); WBC,Urine 13 /hpf (0-5)
== END 2022-12-03 14:50 | disposition home or self-care (01) ==
LOC: EC 10:53
DX: K80.20 Calculus of gallbladder without cholecystitis without obstruction (principal); K76.0 Fatty (change of) liver, not elsewhere classified; J45.909 Unspecified asthma, uncomplicated; Z86.59 Personal history of other mental and behavioral disorders
CPT/HCPCS: 36415; 93005; 80053; 82150; 83690; 83735; 84484; 85025; 85610; 85730; 81001; 81025; 76705; 99285; 96374; 96375; 96361; J2405; J1885; S0119

== ENCOUNTER 2022-12-21 23:54 | Emergency (ER) | payer OTHER ==
[2022-12-22 00:04] VITALS: RESP 18
[2022-12-22] MEDS ORDERED: SODIUM CHLORIDE 0.9% 1,000 ML IV STA (00:09)
[2022-12-22] MEDS ORDERED: ONDANSETRON 4 MG/2 ML VIAL IVP STA (00:09)
[2022-12-22] MEDS ORDERED: MORPHINE SULFATE 4 MG/ML SYRINGE IVP STA (00:09)
[2022-12-22 00:27] LABS: Basophils % (A) 0 %; Eosinophils # (A) 0.1 k/uL (0-0.7); Eosinophils % (A) 2 %; HCT 36.9 % (34.0-46.0); HGB 12.2 gm/dL (11.4-16.0); Lymphocytes # (A) 2.5 k/uL (1.0-4.8); Lymphocytes % (A) 38 %; MCV 81.9 fL (80.0-100.0); Mean Platelet Volume 8.6; Monocytes # (A) 0.4 k/uL (0-1.0); Monocytes % (A) 5 %; Neutrophils # (A) 3.3 k/uL (1.3-7.7); Neutrophils % (A) 52 %; Platelet Count 258 k/uL (150-450); RBC 4.51 m/uL (3.80-5.40); RDW 14.2 % (11.5-15.5); WBC 6.4 k/uL (3.8-10.6)
[2022-12-22 00:39] LABS: ALT 45 U/L (4-34); AST 45 U/L (14-36); African American GFR (CKD) >90 (>60 ml/min/1.73 sqM); Alkaline Phosphatase 115 U/L (38-126); Amylase 46 U/L (30-110); Anion Gap 13 mmol/L; Blood Urea Nitrogen 10 mg/dL (7-17); Carbon Dioxide 19 mmol/L (22-30); Chloride 105 mmol/L (98-107); Glucose 111 mg/dL (74-99); Lipase 178 U/L (23-300); Non-African American GFR(CKD) >90 (>60 ml/min/1.73 sqM); Sodium 137 mmol/L (137-145); Total Bilirubin 0.6 mg/dL (0.2-1.3); Total Protein 6.9 g/dL (6.3-8.2)
--- NOTE | 2022-12-22 01:40 | US ---
EXAM: US Abdomen Limited, Right Upper Quadrant CLINICAL HISTORY: ITS.REASON US Reason: RUQ pain TECHNIQUE: Real-time ultrasound of the right upper quadrant with image documentation. COMPARISON: 12/03/2022 FINDINGS: Liver: Hepatomegaly measuring 18.0 cm. Increased echogenicity liver. No intrahepatic bile duct dilation. Gallbladder: Cholelithiasis. Gallbladder distention. Gallbladder wall thickness measures 3 mm. Positive sonographic Kitchen sign is reported. Common bile duct: Dilated common bile duct measuring 1.2 cm. No stones. Pancreas: Unremarkable as visualized. Right kidney: Right kidney measures 10.9 cm. No stones. No hydronephrosis. IMPRESSION: 1. Findings suspicious for acute calculus cholecystitis. 2. Dilated common bile duct measuring 1.2 cm. MRCP could be done for further evaluation. 3. Hepatic steatosis.
[2022-12-22] MEDS ORDERED: PIPERACILLIN-TAZOBACTAM 3.375 GM in SODIUM CHLORIDE 0.9% 100 ML IVPB STA (02:05)
--- NOTE | 2022-12-22 02:13 | ED ---
Abdominal Pain HPI - General Chief Complaint: Abdominal Pain Stated Complaint: Gall stones Time Seen by Provider: 12/22/22 00:06 Source: patient Mode of arrival: EMS Limitations: no limitations - History of Present Illness Initial Comments: 22-year-old female presenting with chief complaint of abdominal pain. Pain is located primarily in the right upper quadrant. Patient states she was diagnosed with gallstones about 2 weeks ago, she has an outpatient appointment scheduled with general surgery. She has been taking ibuprofen as needed for pain. This evening despite taking ibuprofen pain was worsening. She also admits to nausea and vomiting. No fevers or chills. No diarrhea. No dysuria or hematuria. No chest pain or difficulty breathing. - Related Data Home Medications Medication Instructions Recorded Confirmed Pnv No.154/Iron Fum/Folic Acid 1 capsule PO DAILY 07/09/22 10/31/22 [ Plus Vitamin Tablet] Previous Rx's Medication Instructions Recorded Ibuprofen [Motrin] 600 mg PO Q8HR PRN #20 tab 12/03/22 Ondansetron [Zofran] 4 mg PO Q8HR PRN #12 tab 12/03/22 Allergies Allergy/AdvReac Type Severity Reaction Status Date / Time No Known Allergies Allergy Verified 12/22/22 00:02 Review of Systems ROS Statement: Those systems with pertinent positive or pertinent negative responses have been documented in the HPI. ROS Other: All systems not noted in ROS Statement are negative. Past Medical History Past Medical History: Asthma Additional Past Medical History / Comment(s): eczema, depression, self harm behaviors History of Any Multi-Drug Resistant Organisms: None Reported Past Surgical History: Ear Surgery, Tonsillectomy Past Anesthesia/Blood Transfusion Reactions: No Reported Reaction Past Psychological History: ADD/ADHD, Anxiety, Depression Smoking Status: Never smoker Past Alcohol Use History: None Reported Past Drug Use History: None Reported - Past Family History Mother Family Medical History: Diabetes Mellitus General Exam Limitations: no limitations General appearance: alert, in no apparent distress Head exam: Present: atraumatic, normocephalic, normal inspection Eye exam: Present: normal appearance, EOMI Neck exam: Present: normal inspection, full ROM Respiratory exam: Present: normal lung sounds bilaterally. Absent: respiratory distress, wheezes, rales, rhonchi, stridor Cardiovascular Exam: Present: regular rate, normal rhythm, normal heart sounds. Absent: systolic murmur, diastolic murmur, rubs, gallop, clicks GI/Abdominal exam: Present: soft, tenderness. Absent: distended, guarding, rebound, rigid Neurological exam: Present: alert, oriented X3, CN II-XII intact Psychiatric exam: Present: normal affect, normal mood Skin exam: Present: warm, dry, intact, normal color. Absent: rash Course Vital Signs 12/21/22 23:56 Temperature 96.9 F L Pulse Rate 88 Respiratory 18 Rate Blood Pressure 119/74 O2 Sat by Pulse 100 Oximetry Medical Decision Making - Medical Decision Making Was pt. sent in by a medical professional or institution (, PA, MENTAL HEALTH PROFESSIONAL, urgent care, hospital, or skilled nursing...) When possible be specific @ -No Did you speak to anyone other than the patient for history (EMS, parent, family, police, friend...)? What history was obtained from this source @ -No Did you review nursing and triage notes (agree or disagree)? Why? @ -I reviewed and agree with nursing and triage notes Were old charts reviewed (outside hosp., previous admission, EMS record, old EKG, old radiological studies, urgent care reports/EKG's, skilled nursing records)? Report findings @ -No old charts were reviewed Differential Diagnosis (chest pain, altered mental status, abdominal pain women, abdominal pain men, vaginal bleeding, weakness, fever, dyspnea, syncope, headache, dizziness, GI bleed, back pain, seizure, CVA, palpatations, mental health, musculoskeletal)? @ -MDM Differential Abdominal Pain Women: Appendicitis, Cholecystitis, diverticulosis, ischemic bowel, pancreatitis, hepatitis, UTI, gastroenteritis, AAA, incarcerated hernia, bowel obstruction, constipation, inflammatory bowel, hepatitis, peptic ulcer disease, splenic infarction, perforated viscus, vulvitis, ovarian torsion, PID, kidney stone, placenta abruption... This is not meant to be an all-inclusive list EKG interpreted by me (3pts min.). @ -As above X-rays interpreted by me (1pt min.). @ -None done CT interpreted by me (1pt min.). @ -None done U/S interpreted by me (1pt. min.). @ -Findings suspicious for acute calculus cholecystitis. Dilated common bile duct measuring 1.2 cm. Hepatic steatosis. What testing was considered but not performed or refused? (CT, X-rays, U/S, labs)? Why? @ -None What meds were considered but not given or refused? Why? @ -None Did you discuss the management of the patient with other professionals (professionals i.e. , PA, MENTAL HEALTH PROFESSIONAL, lab, RT, psych nurse, social psychologist, security incident response engineer, teacher, security control room officer, pillowcase sewer)? Give summary @ -Spoke with Dr. Voss GI and Dr Dee ER physician at [facility] who accepted transfer Was smoking cessation discussed for >3mins.? @ -No Was critical care preformed (if so, how long)? @ -No Were there social determinants of health that impacted care today? How? (Homelessness, low income, unemployed, alcoholism, drug addiction, transportation, low edu. Level, literacy, decrease access to med. care, longterm, rehab)? @ -No Was there de-escalation of care discussed even if they declined (Discuss DNR or withdrawal of care, Hospice)? DNR status @ -No What co-morbidities impacted this encounter? (DM, HTN, Smoking, COPD, CAD, Cancer, CVA, ARF, Chemo, Hep., AIDS, mental health diagnosis, sleep apnea, morbid obesity)? @ -None Was patient admitted / discharged? Hospital course, mention meds given and route, prescriptions, significant lab abnormalities, going to OR and other pertinent info. @ -22-year-old female with history of gallstones presented with chief complaint of right upper quadrant pain, nausea, vomiting. Lab work shows no leukocytosis or anemia. There is mild transaminitis. Ultrasound shows cholecystitis with dilated common bile duct. We do not currently have GI on-call. Patient will require transfer. I spoke with gastroenterology and the emergency room physicia n at [facility] who accepted transfer. Patient is agreeable with this plan. I discussed this case with my attending Dr. Mccann. Undiagnosed new problem with uncertain prognosis? @ -No Drug Therapy requiring intensive monitoring for toxicity (Heparin, Nitro, Insulin, Cardizem)? @ -No Were any procedures done? @ -No Diagnosis/symptom? @ -Cholecystitis, dilated common bile duct Acute, or Chronic, or Acute on Chronic? @ -Acute Uncomplicated (without systemic symptoms) or Complicated (systemic symptoms)? @ -Complicated Side effects of treatment? @ -No Exacerbation, Progression, or Severe Exacerbation? @ -No Poses a threat to life or bodily function? How? (Chest pain, [place], [place], pneumonia, PE, COPD, DKA, ARF, appy, cholecystitis, CVA, Diverticulitis, Homicidal, Suicidal, threat to staff... and all critical care pts) @ -Yes - Lab Data Result diagrams: 12/22/22 00:10 12/22/22 00:10 Lab Results 12/22/22 12/22/22 12/22/22 Range/Units 00:10 00:10 00:10 WBC 6.4 (3.8-10.6) k/uL RBC 4.51 (3.80-5.40) m/uL Hgb 12.2 (11.4-16.0) gm/dL Hct 36.9 (34.0-46.0) % MCV 81.9 (80.0-100.0) fL MCH 27.0 (25.0-35.0) pg MCHC 33.0 (31.0-37.0) g/dL RDW 14.2 (11.5-15.5) % Plt Count 258 (150-450) k/uL MPV 8.6 Neutrophils % 52 % Lymphocytes % 38 % Monocytes % 5 % Eosinophils % 2 % Basophils % 0 % Neutrophils # 3.3 (1.3-7.7) k/uL Lymphocytes # 2.5 (1.0-4.8) k/uL Monocytes # 0.4 (0-1.0) k/uL Eosinophils # 0.1 (0-0.7) k/uL Basophils # 0.0 (0-0.2) k/uL Sodium 137 (137-145) mmol/L Potassium 4.0 (3.5-5.1) mmol/L Chloride 105 (98-107) mmol/L Carbon Dioxide 19 L (22-30) mmol/L Anion Gap 13 mmol/L BUN 10 (7-17) mg/dL Creatinine 0.69 (0.52-1.04) mg/dL Est GFR (CKD-EPI)AfAm >90 (>60 ml/min/1.73 sqM) Est GFR (CKD-EPI)NonAf >90 (>60 ml/min/1.73 sqM) Glucose 111 H (74-99) mg/dL Plasma Lactic Acid Eric (0.7-2.0) mmol/L Calcium 10.0 (8.4-10.2) mg/dL Total Bilirubin 0.6 (0.2-1.3) mg/dL AST 45 H (14-36) U/L ALT 45 H (4-34) U/L Alkaline Phosphatase 115 (38-126) U/L Total Protein 6.9 (6.3-8.2) g/dL Albumin 4.0 (3.5-5.0) g/dL Amylase 46 (30-110) U/L Lipase 178 (23-300) U/L Urine HCG, Qual Not Detected (Not Detectd) 12/22/22 Range/Units 00:10 WBC (3.8-10.6) k/uL RBC (3.80-5.40) m/uL Hgb (11.4-16.0) gm/dL Hct (34.0-46.0) % MCV (80.0-100.0) fL MCH (25.0-35.0) pg MCHC (31.0-37.0) g/dL RDW (11.5-15.5) % Plt Count (150-450) k/uL MPV Neutrophils % % Lymphocytes % % Monocytes % % Eosinophils % % Basophils % % Neutrophils # (1.3-7.7) k/uL Lymphocytes # (1.0-4.8) k/uL Monocytes # (0-1.0) k/uL Eosinophils # (0-0.7) k/uL Basophils # (0-0.2) k/uL Sodium (137-145) mmol/L Potassium (3.5-5.1) mmol/L Chloride (98-107) mmol/L Carbon Dioxide (22-30) mmol/L Anion Gap mmol/L BUN (7-17) mg/dL Creatinine (0.52-1.04) mg/dL Est GFR (CKD-EPI)AfAm (>60 ml/min/1.73 sqM) Est GFR (CKD-EPI)NonAf (>60 ml/min/1.73 sqM) Glucose (74-99) mg/dL Plasma Lactic Acid Eric 1.5 (0.7-2.0) mmol/L Calcium (8.4-10.2) mg/dL Total Bilirubin (0.2-1.3) mg/dL AST (14-36) U/L ALT (4-34) U/L Alkaline Phosphatase (38-126) U/L Total Protein (6.3-8.2) g/dL Albumin (3.5-5.0) g/dL Amylase (30-110) U/L Lipase (23-300) U/L Urine HCG, Qual (Not Detectd) Disposition Clinical Impression: Cholecystitis, Common bile duct dilatation Disposition: OTHER INSTITUTION NOT DEFINED Condition: Stable Referrals: None,Stated [Primary Care Provider] - 1-2 days Time of Disposition: 02:13 - Out of Hospital Transfer - Req. Specs Out of Hospital Transfer - Requested Specifics: Other Emergency Center ([facility])
[2022-12-22 02:14] LABS: Appearance,Urine Clear (Clear); Bacteria,Urine Rare /hpf; Bilirubin,Urine Negative (Negative); Blood,Urine Negative (Negative); Color,Urine Colorless; Glucose,Urine (UA) Negative (Negative); Ketones,Urine Negative (Negative); Leukocyte Esterase,Urine Moderate (Negative); Mucus,Urine Rare /hpf; Nitrite,Urine Negative (Negative); PH, Urine 7.5 (5.0-8.0); Protein,Urine Negative (Negative); RBC,Urine 1 /hpf (0-5); Specific Gravity,Urine 1.009 (1.001-1.035); Squamous Epithelial Cell,Urine 6 /hpf (0-4); Urobilinogen,Urine <2.0 mg/dL (<2.0); WBC,Urine 7 /hpf (0-5)
[2022-12-22 03:16] VITALS: BP 123/81; PULSE 71; TEMP 97.6
== END 2022-12-22 02:50 | disposition other institution (70) ==
LOC: EC 23:54
DX: K80.60 Calculus of gallbladder and bile duct with cholecystitis, unspecified, without obstruction (principal); J45.909 Unspecified asthma, uncomplicated; Z86.59 Personal history of other mental and behavioral disorders
CPT/HCPCS: 36415; 93005; 80053; 82150; 83605; 83690; 85025; 81001; 81025; 87040; 76705; 99285; 96374; 96361; J2543

== ENCOUNTER → 2023-12-19 | Outpatient (CLI) | payer OTHER ==
--- NOTE | 2023-12-28 12:04 | P.HOLTER ---
72-hour Holter monitor shows sinus mechanism heart rates ranging from 55-164 beats a minute investigator internal affairs second-degree AV block consistent with vagal effect Nonsustained VT longest for 5 beats No arrhythmias during patient triggered events
--- NOTE | 2024-01-03 14:17 | HM ---
72-hour Holter monitor shows sinus mechanism heart rates ranging from 55-164 beats a minute shuttle repairer second-degree AV block consistent with vagal effect Nonsustained VT longest for 5 beats No arrhythmias during patient triggered events. MTDD
== END | disposition home or self-care (01) ==
LOC: RADECHMAIN 08:05
PROVIDERS: ATTEND Family Medicine
DX: I44.1 Atrioventricular block, second degree (principal); R55 Syncope and collapse
CPT/HCPCS: 93225

== ENCOUNTER 2024-07-24 06:15 | Inpatient (IN) | payer OTHER ==
[2024-07-24] MEDS ORDERED: CARBOPROST TROMETHAMINE 250 MCG/ML 1 ML AMP IM PRN (06:44)
[2024-07-24] MEDS ORDERED: METHYLERGONOVINE 0.2 MG/ML 1 ML AMP IM PRN (06:44)
[2024-07-24] MEDS ORDERED: miSOPROStoL 200 MCG TAB PO PRN (06:44)
[2024-07-24] MEDS ORDERED: miSOPROStoL 200 MCG TAB RECTAL PRN (06:44)
[2024-07-24] MEDS ORDERED: TRANEXAMIC 1,000 MG/100ML-NACL 1,000 MG in EMPTY BAG 1 BAG IV PRN (06:44)
[2024-07-24] MEDS ORDERED: OXYTOCIN 10 UNIT/ML 1 ML VIAL IM PRN (06:44)
[2024-07-24] MEDS ORDERED: LIDOCAINE 0.5% (PF) 5 MG/ML (50 ML SDV) SQ PRN (06:44)
[2024-07-24] MEDS ORDERED: TERBUTALINE 1 MG/ML VIAL SQ PRN (06:44)
[2024-07-24] MEDS: LACTATED RINGERS 1,000 ML IV SCH (07:08)
[2024-07-24] MEDS: PENICILLIN G POTASSIUM 5,000,000 UNIT in SODIUM CHLORIDE 0.9% 100 ML IVPB STA (07:21)
[2024-07-24 07:23] LABS: Basophils # (A) 0.03 10*3/uL (0.00-0.10); Basophils % (A) 0.4 %; Eosinophils % (A) 1.2 %; HCT 35.5 % (37.2-46.3); HGB 11.1 g/dL (12.0-15.0); Lymphocytes # (A) 1.63 10*3/uL (0.90-5.00); Lymphocytes % (A) 20.2 %; MCH 25.7 pg (27.0-32.0); MCHC 31.3 g/dL (32.0-37.0); MCV 82.2 fL (80.0-97.0); Mean Platelet Volume 12.4 fL (9.5-12.2); Monocytes # (A) 0.66 10*3/uL (0.20-1.00); Monocytes % (A) 8.2 %; Neutrophils # (A) 5.59 10*3/uL (1.80-7.70); Neutrophils % (A) 69.3 %; Platelet Count 258 10*3/uL (140-440); RBC 4.32 10*6/uL (4.10-5.20); RDW 14.5 % (11.5-14.5); WBC 8.07 10*3/uL (4.50-10.00)
[2024-07-24] MEDS: OXYTOCIN 30 UNITS/500 ML NS 30 UNIT in SALINE 1 500ML.BAG IV SCH (09:00)
[2024-07-24] MEDS ORDERED: BUTORPHANOL 1 MG/ML 1 ML VIAL IV PRN (09:10)
--- NOTE | 2024-07-24 09:16 | P.HPOB ---
History of Present Illness H&P Date: 07/24/24 Chief Complaint: 40 and 1 sevenths weeks, induction Patient is a 23-year-old 2 para 1-0-0-1 admitted at 40 and 1 sevenths weeks as established by 11-week ultrasound. She is admitted with all signs reassuring, category 1 heart rate tracing. Her has been uncomplicated though she is group B strep positive. She is Rh- and received RhoGAM at 28 weeks. She additionally has requested permanent sterilization should section become necessary. Obstetrical history: 2 para 1-0-0-1 with 1 term vaginal delivery without complications. Current statistics are listed in history of present illness. EDC of 07/23/2024 was established by an 11-week ultrasound. Laboratory workup demonstrates a blood type of A- with a negative antibody screen. Rubella status is immune. The remainder of the laboratory workup was within normal alaniz its. Early Glucola and second trimester Glucola were normal and group B strep status is positive. Gynecologic history: Unremarkable with no history of any infections to include STDs. Review of Systems Review of systems is confined to history of present illness. Past Medical History Past Medical History: Asthma Additional Past Medical History / Comment(s): eczema, depression, self harm behaviors History of Any Multi-Drug Resistant Organisms: None Reported Past Surgical History: Adenoidectomy, Ear Surgery, Tonsillectomy Past Anesthesia/Blood Transfusion Reactions: No Reported Reaction Past Psychological History: ADD/ADHD, Anxiety, Depression Smoking Status: Never smoker Past Alcohol Use History: None Reported Past Drug Use History: None Reported - Past Family History Mother Family Medical History: COPD, Thyroid Disorder Additional Family Medical History / Comment(s): fibroid tumors Medications and Allergies Home Medications Medication Instructions Recorded Confirmed Type Pnv No.154/Iron Fum/Folic Acid 1 capsule PO DAILY 07/09/22 07/24/24 History [ Plus Vitamin Tablet] Allergies Allergy/AdvReac Type Severity Reaction Status Date / Time No Known Allergies Allergy Verified 07/24/24 07:19 Exam Vital Signs Temp Pulse Resp BP Pulse Ox 07/24/24 07:31 97.1 F L 88 17 122/72 97 Intake and Output 07/23/24 07/24/24 07/24/24 22:59 06:59 14:59 Other: Weight 127.913 kg 127.913 kg In general, this is a well-developed, moderately obese white female in no acute distress. Her heart has a regular rhythm and rate without murmur. Her lungs c lear to auscultation bilaterally in all sarmiento. Her abdomen is obese, gravid, nondistended, has normal active bowel sounds, soft, nontender, and without any palpable masses aside from uterine fundus. Her extremities are without any cyanosis, clubbing, or edema and are nontender to palpation bilaterally. Digital cervical examination demonstrates her cervix to be 2+ centimeters dilated, 50% effaced, with the vertex and presentation at -2 station. Artificial rupture of membranes is carried out demonstrating clear fluid. A scalp electrode is applied in standard fashion as well. Results Result Diagrams: 07/24/24 07:17 Abnormal Lab Results - Last 24 Hours (Table) 07/24/24 Range/Units 07:17 Hgb 11.1 L (12.0-15.0) g/dL Hct 35.5 L (37.2-46.3) % MCH 25.7 L (27.0-32.0) pg MCHC 31.3 L (32.0-37.0) g/dL MPV 12.4 H (9.5-12.2) fL Immature Gran # 0.06 H (0.00-0.04) 10*3/uL Assessment and Plan (1) Group B streptococcal infection in Current Visit: Yes Status: Acute Code(s): O98.819 - OTH MATERNAL INFEC/PARASTC DISEASES COMP PREG, UNSP TRI; B95.1 - STREPTOCOCCUS, GROUP B, CAUSING DISEASES CLASSD [id number] SNOMED Code(s): 093877432 (2) Term Current Visit: Yes Status: Acute Code(s): Z34.90 - ENCNTR FOR SUPRVSN OF NORMAL , UNSP, UNSP TRIMESTER SNOMED Code(s): 33909969 Plan: The patient has been admitted for induction of labor and Pitocin has been started. She has undergone artificial rupture of membranes. Antibiotic prophylaxis has been started for group B strep. She will continue to have close maternal and surveillance and expectant management will be practiced. She is a good candidate for either IV or epidural analgesia, whichever she may choose.
[2024-07-24] MEDS: PENICILLIN G POTASSIUM 2,500,000 UNIT in SODIUM CHLORIDE 0.9% 100 ML IVPB SCH (11:16)
[2024-07-24] MEDS ORDERED: fentaNYL (PF) 50 MCG/ML 5 ML AMP ONE (11:27)
[2024-07-24] MEDS ORDERED: ROPIVACAINE 5 MG/ML 30 ML VIAL ONE (11:27)
[2024-07-24] MEDS ORDERED: SODIUM CHLORIDE 0.9% 250 ML BAG ONE (11:27)
[2024-07-24] MEDS ORDERED: ROPIVACAINE 225 MG, fentaNYL (PF). 450 MCG in SODIUM CHLORIDE 0.9% 171 ML EPIDURAL ONE (11:59)
[2024-07-24] MEDS ORDERED: diphenhydrAMINE 25 MG CAP PO PRN (13:56)
[2024-07-24] MEDS ORDERED: ACETAMINOPHEN TAB 500 MG TAB PO PRN (13:56)
[2024-07-24] MEDS ORDERED: SIMETHICONE 80 MG CHEWABLE PO PRN (13:56)
[2024-07-24] MEDS ORDERED: diphenhydrAMINE 50 MG CAP PO PRN (13:56)
[2024-07-24] MEDS ORDERED: HYDROCORTISONE 2.5% RECTAL CREAM 30 GM TUBE RECTAL PRN (13:56)
[2024-07-24] MEDS ORDERED: diphenhydrAMINE 50 MG/ML 1 ML VIAL IVP PRN ×2 (13:56)
[2024-07-24] MEDS ORDERED: LANOLIN CREAM 1 GM TUBE TOPICAL PRN (13:56)
[2024-07-24] MEDS ORDERED: ZOLPIDEM 5 MG TAB PO PRN (13:56)
[2024-07-24] MEDS ORDERED: OXYTOCIN 30 UNITS/500 ML NS 30 UNIT in SALINE 1 500ML.BAG IV SCH (14:00)
--- NOTE | 2024-07-24 14:00 | P.PROBDLV ---
Vaginal Delivery Note - . Vaginal Delivery Note: The patient is a 23-year-old 2 para 1-0-0-1 admitted at 40 and 1 sevenths weeks by good dating parameters. She is admitted for induction of labor with all signs reassuring, category 1 heart rate tracing. Her has been uncomplicated though she is Rh- and received RhoGAM at 28 weeks. She additionally is known to be group B strep positive. As a result, she had antibiotic prophylaxis started on labor and delivery followed by artificial rupture of membranes and augmentation with Pitocin. She made progress to the active phase of labor and had an epidural catheter placed for analgesia. She then progressed fairly quickly through the active phase of labor to complete and pushed over the course of approximately 3 contractions to a normal spontaneous vaginal delivery of a viable 7 pound 15 ounce baby girl with Apgars of 8 at 1 minute and 9 at 5 minutes delivered in the direct occiput anterior position. The placenta was delivered spontaneously, intact, and grossly normal with a grossly normal, centrally inserted three-vessel cord though the cord insertion site lacerated to some extent during delivery. There was a very small first-degree midline perineal laceration over the site of a previous laceration which was not repaired as it was not bleeding and reapproximated on its own. There are no other lacerations of the perineum, vagina, or cervix. Estimated blood loss for the case was approximate 150 mL. There were no complications. All sponge, instrument, and needle counts were correct. Both mother and infant are resting comfortably in recovery.
[2024-07-24] MEDS: IBUPROFEN 800 MG TAB PO PRN (15:11)
[2024-07-24] MEDS: BENZOCAINE/MENTHOL SPRAY 1 GM/SPRAY AEROSOL TOPICAL PRN (16:10)
[2024-07-24] MEDS: SENNOSIDES-DOCUSATE SODIUM 1 EACH TAB PO SCH (19:59)
[2024-07-24 20:02] VITALS: RESP 16
[2024-07-25 05:54] LABS: Basophils # (A) 0.03 10*3/uL (0.00-0.10); Basophils % (A) 0.3 %; Eosinophils % (A) 1.1 %; HCT 28.7 % (37.2-46.3); MCH 26.2 pg (27.0-32.0); MCHC 31.4 g/dL (32.0-37.0); MCV 83.4 fL (80.0-97.0); Mean Platelet Volume 12.5 fL (9.5-12.2); Monocytes # (A) 0.85 10*3/uL (0.20-1.00); Monocytes % (A) 9.4 %; Neutrophils # (A) 6.16 10*3/uL (1.80-7.70); Neutrophils % (A) 68.3 %; Platelet Count 213 10*3/uL (140-440); RBC 3.44 10*6/uL (4.10-5.20); RDW 14.6 % (11.5-14.5); WBC 9.02 10*3/uL (4.50-10.00)
[2024-07-25] MEDS: SERTRALINE 50 MG TAB PO SCH (08:28)
[2024-07-25 08:41] VITALS: BP 101/62; PULSE 97; TEMP 98.2
--- NOTE | 2024-07-25 10:06 | P.DS ---
Providers Date of admission: 07/24/24 06:27 Expected date of discharge: 07/25/24 Attending physician: Keny Castañeda Primary care physician: Stated None - Discharge Diagnosis(es) (1) Group B streptococcal infection in Current Visit: Yes Status: Acute (2) Term Current Visit: Yes Status: Acute (3) FTND (full term normal delivery) Current Visit: Yes Status: Acute Hospital Course: Patient is a 23-year-old 2 para 1-0-0-1 admitted at 40 and 1 sevenths weeks by good dating parameters. She is admitted for induction of labor thought signs reassuring, category 1 heart rate tracing. Her was uncomplicated though she is Rh- and received RhoGAM at 28 weeks. She additionally was known to be group B strep positive. On labor delivery, she had antibiotic prophylaxis started and underwent artificial rupture of membranes for clear fluid. Pitocin augmentation was started. She may progress to the active phase of labor and had an epidural catheter placed for analgesia. She then progressed fairly quickly to complete and pushed to a normal spontaneous vaginal delivery of a viable pound 15 ounce baby girl with Apgars of 8 at 1 minute and 9 at 5 minutes. Her course was unremarkable with vital signs remaining stable and her temperature was afebrile throughout. She was deemed stable for discharge on day #1 and was discharged home to follow-up in the [facility] [place] in 6 weeks time routinely. Discharge instructions included calling for any significantly increased bleeding or foul-smelling lochia, significantly increased fever or abdominal pain, perineal complaints, breast complaints, or anything else that concerned her. She was additionally instructed to have nothing in the vagina for at least 6 weeks time to include intercourse. She understood her instructions and agrees to follow-up as noted above. Discharge medications included [id number] analgesic pain medications. Maternal blood type is A- and cord blood was sent for evaluation for the necessity of RhoGAM prior to discharge. Rubella status is immune. Procedures: #1. Antibiotic prophylaxis #2. Artificial rupture of membranes #3. Pitocin induction #4. Epidural analgesia #5. Normal spontaneous vaginal delivery Patient Condition at Discharge: Stable Plan - Discharge Summary New Discharge Prescriptions: No Action Pnv No.154/Iron Fum/Folic Acid [ Plus Vitamin Tablet] 1 capsule PO DAILY Discharge Medication List Pnv No.154/Iron Fum/Folic Acid [ Plus Vitamin Tablet] 1 capsule PO DAILY 07/09/22 [History] Follow up Appointment(s)/Referral(s): Keny Castañeda MD [STAFF PHYSICIAN] - 09/03/24 11:15 am Discharge Disposition: HOME SELF-CARE
== END 2024-07-25 15:10 | disposition home or self-care (01) | DRG 560 ==
LOC: 4FBP 06:27
PROVIDERS: ADMIT Obstetrics & Gynecology; ATTEND Obstetrics & Gynecology
PROC: 10907ZC Drainage of Amniotic Fluid, Therapeutic from Products of Conception, Via Natural or Artificial Opening (ICD-10-PCS; principal; 2024-07-24)
PROC: 0HQ9XZZ Repair Perineum Skin, External Approach (ICD-10-PCS; principal; 2024-07-24)
PROC: 10H073Z Insertion of Monitoring Electrode into Products of Conception, Via Natural or Artificial Opening (ICD-10-PCS; principal; 2024-07-24)
PROC: 10E0XZZ Delivery of Products of Conception, External Approach (ICD-10-PCS; principal; 2024-07-24)
PROC: 4A1H74Z Monitoring of Products of Conception, Cardiac Electrical Activity, Via Natural or Artificial Opening (ICD-10-PCS; principal; 2024-07-24)
DX: O48.0 Post-term pregnancy (principal); O99.824 Streptococcus B carrier state complicating childbirth; O26.893 Other specified pregnancy related conditions, third trimester; Z67.11 Type A blood, Rh negative; O70.0 First degree perineal laceration during delivery; O99.52 Diseases of the respiratory system complicating childbirth; O99.344 Other mental disorders complicating childbirth; F32.A Depression, unspecified; F41.9 Anxiety disorder, unspecified; F90.9 Attention-deficit hyperactivity disorder, unspecified type; J45.909 Unspecified asthma, uncomplicated; Z91.52 Personal history of nonsuicidal self-harm; Z3A.40 40 weeks gestation of pregnancy; Z37.0 Single live birth
CPT/HCPCS: 85025; 86850; 86900; 86901

== ENCOUNTER → 2024-09-20 | Outpatient (CLI) | payer OTHER ==
[2024-09-20 13:13] LABS: Basophils # (A) 0.02 X 10*3/uL (0.00-0.10); Basophils % (A) 0.3 %; Eosinophils # (A) 0.21 X 10*3/uL (0.04-0.35); Eosinophils % (A) 3.5 %; HCT 39.8 % (37.2-46.3); Lymphocytes # (A) 1.81 X 10*3/uL (0.90-5.00); Lymphocytes % (A) 29.8 %; MCH 25.4 pg (27.0-32.0); MCHC 30.2 g/dL (32.0-37.0); MCV 84.1 FL (80.0-97.0); Mean Platelet Volume 10.8 FL (9.5-12.2); Monocytes # (A) 0.42 X 10*3/uL (0.20-1.00); Monocytes % (A) 6.9 %; NRBC Per 100 WBC 0 X 10*3/uL (0.00-0.01); Neutrophils # (A) 3.59 X 10*3/uL (1.80-7.70); Neutrophils % (A) 59.2 %; Platelet Count 337 X 10*3/uL (140-440); RBC 4.73 X 10*6/uL (4.10-5.20); RDW 15.9 % (11.5-14.5); WBC 6.07 X 10*3/uL (4.50-10.00)
== END | disposition home or self-care (01) ==
LOC: LABPAT 09:31
PROVIDERS: ATTEND Obstetrics & Gynecology
DX: Z01.812 Encounter for preprocedural laboratory examination (principal)
CPT/HCPCS: 85025

== ENCOUNTER 2024-09-21 15:48 | Emergency (ER) | payer OTHER ==
[2024-09-21 16:55] VITALS: TEMP 98.7
[2024-09-21] MEDS: ONDANSETRON ODT 4 MG TAB PO STA (17:13)
--- NOTE | 2024-09-21 18:25 | ED ---
Nausea/Vomiting/Diarrhea HPI - General Chief complaint: Nausea/Vomiting/Diarrhea Stated complaint: NVD Time Seen by Provider: 09/21/24 16:33 Source: patient Mode of arrival: ambulatory Limitations: no limitations - History of Present Illness Initial comments: 23-year-old female presenting with chief complaint of nausea vomiting and diarrhea. This started around 2 AM today. She is having no abdominal pain. No blood in her emesis or stool. No chest pain or difficulty breathing. No dysuria hematuria urgency or frequency. She states "I think I have a stomach flu". - Related Data Home Medications Medication Instructions Recorded Confirmed Pnv No.154/Iron Fum/Folic Acid 1 capsule PO DAILY 07/09/22 07/24/24 [ Plus Vitamin Tablet] Previous Rx's Medication Instructions Recorded Ondansetron Odt [Zofran Odt] 4 mg PO Q8HR PRN #20 tab 09/21/24 Allergies Allergy/AdvReac Type Severity Reaction Status Date / Time No Known Allergies Allergy Verified 09/21/24 15:52 Review of Systems ROS Statement: Those systems with pertinent positive or pertinent negative responses have been documented in the HPI. ROS Other: All systems not noted in ROS Statement are negative. Past Medical History Past Medical History: Asthma Additional Past Medical History / Comment(s): eczema, depression, self harm behaviors History of Any Multi-Drug Resistant Organisms: None Reported Past Surgical History: Adenoidectomy, Ear Surgery, Tonsillectomy Past Anesthesia/Blood Transfusion Reactions: No Reported Reaction Past Psychological History: ADD/ADHD, Anxiety, Depression Smoking Status: Never smoker Past Alcohol Use History: None Reported Past Drug Use History: None Reported - Past Family History Mother Family Medical History: COPD, Thyroid Disorder Additional Family Medical History / Comment(s): fibroid tumors General Exam Limitations: no limitations General appearance: alert, in no apparent distress Head exam: Present: atraumatic, normocephalic, normal inspection Eye exam: Present: normal appearance, EOMI Neck exam: Present: normal inspection. Absent: meningismus Respiratory exam: Absent: respiratory distress Cardiovascular Exam: Present: regular rate GI/Abdominal exam: Present: soft. Absent: distended, tenderness, guarding, rebo und, rigid Neurological exam: Present: alert, oriented X3 Psychiatric exam: Present: normal affect, normal mood Skin exam: Present: warm, dry, normal color Course Vital Signs 09/21/24 09/21/24 09/21/24 15:50 16:52 20:51 Temperature 98.8 F 98.7 F 98.7 F Pulse Rate 96 101 H 94 Respiratory 20 16 17 Rate Blood Pressure 118/81 120/80 128/80 O2 Sat by Pulse 99 97 100 Oximetry Medical Decision Making - Medical Decision Making Was pt. sent in by a medical professional or institution ([facility], [facility], urgent c are, hospital, or [facility]...) When possible be specific @ -No Did you speak to anyone other than the patient for history (EMS, parent, family, police, friend...)? What history was obtained from this source @ -No Did you review nursing and triage notes (agree or disagree)? Why? @ -I reviewed and agree with nursing and triage notes Were old charts reviewed (outside hosp., previous admission, EMS record, old EKG, old radiological studies, urgent care reports/EKG's, [facility] records)? Report findings @ -No old charts were reviewed Differential Diagnosis (chest pain, altered mental status, abdominal pain women, abdominal pain men, vaginal bleeding, weakness, fever, dyspnea, syncope, headache, dizziness, GI bleed, back pain, seizure, CVA, palpatations, mental health, musculoskeletal)? @ -Differential includes gastroenteritis, , colitis, diverticulitis, not an all-inclusive list EKG interpreted by me (3pts min.). @ -As above X-rays interpreted by me (1pt min.). @ -None done CT interpreted by me (1pt min.). @ -None done U/S interpreted by me (1pt. min.). @ -None done What testing was considered but not performed or refused? (CT, X-rays, U/S, labs)? Why? @ -None What meds were considered but not given or refused? Why? @ -None Did you discuss the management of the patient with other professionals (professionals i.e. [facility], [facility], lab, RT, psych nurse, social staff worker, beading sawyer, teacher, photographic intelligence officer, case mgr)? Give summary @ -No Was smoking cessation discussed for >3mins.? @ -No Was critical care preformed (if so, how long)? @ -No Were there social determinants of health that impacted care today? How? (Homelessness, low income, unemployed, alcoholism, drug addiction, transportation, low edu. Level, literacy, decrease access to med. care, [facility], rehab)? @ -No Was there de-escalation of care discussed even if they declined (Discuss DNR or withdrawal of care, Hospice)? DNR status @ -No What co-morbidities impacted this encounter? (DM, HTN, Smoking, COPD, CAD, Cancer, CVA, ARF, Chemo, Hep., AIDS, mental health diagnosis, sleep apnea, morb id obesity)? @ -None Was patient admitted / discharged? Hospital course, mention meds given and rou te, prescriptions, significant lab abnormalities, going to OR and other pertinent info. @ -23-year-old female presenting with chief complaint of nausea vomiting and diarrhea that started earlier this morning. No abdominal pain. History and physical examination are conducted. Patient is given Zofran. Negative hCG. Labs require no action. She is able to tolerate oral intake and is feeling well. Discharged. Follow-up with PCP. Report back to ER with any new or worsening symptoms. Discussed return parameters and answered all questions. Patient conveyed verbal understanding and agreed to the plan. I discussed this case in detail with my attending Dr. Rudolph Undiagnosed new problem with uncertain prognosis? @ -No Drug Therapy requiring intensive monitoring for toxicity (Heparin, Nitro, Insulin, Cardizem)? @ -No Were any procedures done? @ -No Diagnosis/symptom? @ -Gastroenteritis Acute, or Chronic, or Acute on Chronic? @ -Acute Uncomplicated (without systemic symptoms) or Complicated (systemic symptoms)? @ -Uncomplicated Side effects of treatment? @ -No Exacerbation, Progression, or Severe Exacerbation? @ -No Poses a threat to life or bodily function? How? (Chest pain, USA, DC, pneumonia, PE, COPD, DKA, ARF, appy, cholecystitis, CVA, Diverticulitis, Homicidal, Suicidal, threat to staff... and all critical care pts) @ -Unlikely - Lab Data Result diagrams: 09/21/24 19:20 09/21/24 19:20 Lab Results 09/21/24 09/21/24 09/21/24 Range/Units 17:31 17:40 19:20 WBC 7.96 (4.50-10.00) 10*3/uL RBC 5.12 (4.10-5.20) 10*6/uL Hgb 13.5 D (12.0-15.0) g/dL Hct 41.2 (37.2-46.3) % MCV 80.5 (80.0-97.0) fL MCH 26.4 L (27.0-32.0) pg MCHC 32.8 (32.0-37.0) g/dL Plt Count 395 (140-440) 10*3/uL MPV 9.9 (9.5-12.2) fL Immature Gran % (Auto) 0.1 % Neutrophils % 72.0 % Lymphocytes % 20.0 % Monocytes % 7.2 % Eosinophils % 0.4 % Basophils % 0.3 % Immature Gran # 0.01 (0.00-0.04) 10*3/uL Neutrophils # 5.74 (1.80-7.70) 10*3/uL Lymphocytes # 1.59 (0.90-5.00) 10*3/uL Monocytes # 0.57 (0.20-1.00) 10*3/uL Eosinophils # 0.03 L (0.04-0.35) 10*3/uL Basophils # 0.02 (0.00-0.10) 10*3/uL Sodium (137-145) mmol/L Potassium (3.5-5.1) mmol/L Chloride (98-107) mmol/L Carbon Dioxide (22-30) mmol/L Anion Gap mmol/L BUN (7-17) mg/dL Creatinine (0.52-1.04) mg/dL Est GFR (CKD-EPI)AfAm (>60 ml/min/1.73 sqM) Est GFR (CKD-EPI)NonAf (>60 ml/min/1.73 sqM) Glucose (74-99) mg/dL Calcium (8.4-10.2) mg/dL Total Bilirubin (0.2-1.3) mg/dL AST (14-36) U/L ALT (4-34) U/L Alkaline Phosphatase (38-126) U/L Total Protein (6.3-8.2) g/dL Albumin (3.5-5.0) g/dL Amylase (30-110) U/L Lipase (23-300) U/L Urine HCG, Qual Not Detected (Not Detectd) Influenza Type A (PCR) Not Detected (Not Detectd) Influenza Type B (PCR) Not Detected (Not Detectd) RSV (PCR) Not Detected (Not Detectd) SARS-CoV-2 (PCR) Not Detected (Not Detectd) 09/21/24 Range/Units 19:20 WBC (4.50-10.00) 10*3/uL RBC (4.10-5.20) 10*6/uL Hgb (12.0-15.0) g/dL Hct (37.2-46.3) % MCV (80.0-97.0) fL MCH (27.0-32.0) pg MCHC (32.0-37.0) g/dL Plt Count (140-440) 10*3/uL MPV (9.5-12.2) fL Immature Gran % (Auto) % Neutrophils % % Lymphocytes % % Monocytes % % Eosinophils % % Basophils % % Immature Gran # (0.00-0.04) 10*3/uL Neutrophils # (1.80-7.70) 10*3/uL Lymphocytes # (0.90-5.00) 10*3/uL Monocytes # (0.20-1.00) 10*3/uL Eosinophils # (0.04-0.35) 10*3/uL Basophils # (0.00-0.10) 10*3/uL Sodium 136 L (137-145) mmol/L Potassium 3.8 (3.5-5.1) mmol/L Chloride 100 (98-107) mmol/L Carbon Dioxide 22 (22-30) mmol/L Anion Gap 14 mmol/L BUN 11 (7-17) mg/dL Creatinine 0.70 (0.52-1.04) mg/dL Est GFR (CKD-EPI)AfAm >90 (>60 ml/min/1.73 sqM) Est GFR (CKD-EPI)NonAf >90 (>60 ml/min/1.73 sqM) Glucose 108 H (74-99) mg/dL Calcium 9.9 (8.4-10.2) mg/dL Total Bilirubin 0.8 (0.2-1.3) mg/dL AST 30 (14-36) U/L ALT 54 H (4-34) U/L Alkaline Phosphatase 91 (38-126) U/L Total Protein 7.9 (6.3-8.2) g/dL Albumin 4.8 (3.5-5.0) g/dL Amylase 44 (30-110) U/L Lipase 80 (23-300) U/L Urine HCG, Qual (Not Detectd) Influenza Type A (PCR) (Not Detectd) Influenza Type B (PCR) (Not Detectd) RSV (PCR) (Not Detectd) SARS-CoV-2 (PCR) (Not Detectd) Disposition Clinical Impression: Gastroenteritis Disposition: HOME SELF-CARE Condition: Good Instructions (If sedation given, give patient instructions): Acute Nausea and Vomiting (ED) Additional Instructions: Follow-up with PCP. Report back to ER with any new or worsening symptoms. Take Motrin and Tylenol as needed for pain control. Prescriptions: Ondansetron Odt [Zofran Odt] 4 mg PO Q8HR PRN #20 tab PRN Reason: Nausea Is patient prescribed a controlled substance at d/c from ED?: No Referrals: None,Stated [Primary Care Provider] - 1-2 days Time of Disposition: 20:13
[2024-09-21 18:36] LABS: Influenza A Not Detected (Not Detectd); Influenza B Not Detected (Not Detectd); RSV Not Detected (Not Detectd)
[2024-09-21 19:38] LABS: ALT 54 U/L (4-34); AST 30 U/L (14-36); African American GFR (CKD) >90 (>60 ml/min/1.73 sqM); Albumin 4.8 g/dL (3.5-5.0); Alkaline Phosphatase 91 U/L (38-126); Amylase 44 U/L (30-110); Anion Gap 14 mmol/L; Blood Urea Nitrogen 11 mg/dL (7-17); Calcium 9.9 mg/dL (8.4-10.2); Carbon Dioxide 22 mmol/L (22-30); Chloride 100 mmol/L (98-107); Glucose 108 mg/dL (74-99); Lipase 80 U/L (23-300); Non-African American GFR(CKD) >90 (>60 ml/min/1.73 sqM); Potassium 3.8 mmol/L (3.5-5.1); Sodium 136 mmol/L (137-145); Total Bilirubin 0.8 mg/dL (0.2-1.3); Total Protein 7.9 g/dL (6.3-8.2)
[2024-09-21] MEDS: SODIUM CHLORIDE 0.9% 1,000 ML IV ONE (19:49)
[2024-09-21] MEDS: METOCLOPRAMIDE 5 MG/ML 2 ML VIAL IVP STA (19:50)
[2024-09-21 19:51] LABS: Basophils # (A) 0.02 10*3/uL (0.00-0.10); Basophils % (A) 0.3 %; Eosinophils # (A) 0.03 10*3/uL (0.04-0.35); Eosinophils % (A) 0.4 %; HCT 41.2 % (37.2-46.3); Lymphocytes # (A) 1.59 10*3/uL (0.90-5.00); MCH 26.4 pg (27.0-32.0); MCHC 32.8 g/dL (32.0-37.0); MCV 80.5 fL (80.0-97.0); Mean Platelet Volume 9.9 fL (9.5-12.2); Monocytes # (A) 0.57 10*3/uL (0.20-1.00); Monocytes % (A) 7.2 %; Neutrophils # (A) 5.74 10*3/uL (1.80-7.70); Platelet Count 395 10*3/uL (140-440); RBC 5.12 10*6/uL (4.10-5.20); WBC 7.96 10*3/uL (4.50-10.00)
[2024-09-21 20:02] LABS: HGB 13.5 g/dL (12.0-15.0)
[2024-09-21 20:53] VITALS: BP 128/80; PULSE 94; RESP 17
== END 2024-09-21 20:52 | disposition home or self-care (01) ==
LOC: EC 15:48
DX: K52.9 Noninfective gastroenteritis and colitis, unspecified (principal)
CPT/HCPCS: 36415; 80053; 82150; 83690; 85025; 81025; 87636; 99284; 96374; 96361; J2765

== ENCOUNTER 2024-09-29 06:05 | Day surgery (SDC) | payer OTHER ==
[2024-09-25 11:31] VITALS: BMI 46.0
[~2024-09-29 06:05] MED LIST: Pre Op ABX Message 1 EACH MISC MISCELLANE ONE
[2024-09-29] MEDS: IV FLUID CONTINUATION 1,000 ML IV ONE (06:40)
[2024-09-29] MEDS: FAMOTIDINE 20 MG/2 ML VIAL IV STA (07:02)
[2024-09-29] MEDS: ONDANSETRON 4 MG/2 ML VIAL IVP ONE (07:02)
[2024-09-29] MEDS: DEXAMETHASONE SOD PHOSPHATE 4 MG/ML 1 ML VIAL IV ONE (07:02)
[2024-09-29] MEDS ORDERED: SUCCINYLCHOLINE CHLORIDE 200 MG/10 ML VIAL IV ONE (07:27)
[2024-09-29] MEDS ORDERED: fentaNYL (PF) 50 MCG/ML 2 ML AMP ONE (07:27)
[2024-09-29] MEDS ORDERED: PROPOFOL 10 MG/ML 20 ML VIAL IV ONE (07:27)
[2024-09-29] MEDS ORDERED: GLYCOPYRROLATE 0.2 MG/ML 2 ML VIAL ONE (07:27)
[2024-09-29] MEDS ORDERED: KETOROLAC 15 MG/ML 1 ML VIAL ONE (07:27)
[2024-09-29] MEDS ORDERED: LIDOCAINE 1% INJ 10MG/ML (20 ML MDV) ONE (07:27)
[2024-09-29] MEDS ORDERED: NEOSTIGMINE 1 MG/ML 10 ML VIAL ONE (07:27)
[2024-09-29] MEDS ORDERED: ROCURONIUM 10 MG/ML (5 ML VIAL) IV ONE (07:27)
[2024-09-29] MEDS: BUPIVACAINE (PF) 0.5% 30 ML VIAL SQ ONE ×2 (07:44→08:09)
[2024-09-29] MEDS: HYDROmorphone 0.5 MG/0.5 ML SYRINGE IVP PRN (08:22)
[2024-09-29 08:25] VITALS: TEMP 97.3
[2024-09-29] MEDS: LACTATED RINGERS 1,000 ML IV ONE (08:50)
[2024-09-29] MEDS: LACTATED RINGERS 1,000 ML IV SCH (08:52)
[2024-09-29] MEDS ORDERED: ONDANSETRON 4 MG/2 ML VIAL IVP PRN (08:57)
[2024-09-29] MEDS ORDERED: ACETAMINOPHEN TAB 325 MG TAB PO PRN (08:57)
[2024-09-29] MEDS ORDERED: SIMETHICONE 80 MG CHEWABLE PO PRN (08:57)
[2024-09-29] MEDS ORDERED: KETOROLAC 15 MG/ML 1 ML VIAL IVP PRN (08:57)
[2024-09-29] MEDS ORDERED: METOCLOPRAMIDE 5 MG/ML 2 ML VIAL IVP PRN (08:57)
[2024-09-29] MEDS ORDERED: IBUPROFEN 600 MG TAB PO PRN (08:57)
[2024-09-29] MEDS ORDERED: diphenhydrAMINE 50 MG/ML 1 ML VIAL IVP PRN (08:57)
[2024-09-29] MEDS ORDERED: diphenhydrAMINE 25 MG CAP PO PRN (08:57)
[2024-09-29] MEDS ORDERED: LACTATED RINGERS 1,000 ML IV SCH (09:00)
--- NOTE | 2024-09-29 09:04 | P.OP ---
Date of Procedure: 09/29/24 Preoperative Diagnosis: #1. Multiparity #2. Undesired fertility Postoperative Diagnosis: Same Procedure(s) Performed: #1. Laparoscopic bilateral salpingectomy Anesthesia: JUWANA Surgeon: Keny Castañeda Estimated Blood Loss (ml): 5 IV fluids (ml): 600 Urine output (ml): 5 Pathology: none sent (Bilateral fallopian tubes, single specimen) Condition: stable Disposition: PACU Operative Findings: Preoperative pelvic examination demonstrated a 4 to 5-week anteverted mobile normal shaped uterus with normal adnexa bilaterally. Intraoperatively, the uterus, tubes, and ovaries were entirely normal to inspection. The small and large bowel as well as the liver and diaphragm were normal. The appendix was not seen. The bilateral fallopian tubes were removed from their fimbriated end to the cornual insertion. Description of Procedure: The patient was prepped and draped in usual fashion after general endotracheal anesthesia is administered by the anesthesiologist. A speculum was placed after draining a bladder of 5 mL of clear bruce urine. The anterior lip of the cervix was grasped with a single-tooth tenaculum and an acorn cannula placed for manipulation. Attention was turned to the abdomen where a roughly 5 mm incision was made in a vertical fold of the umbilicus allowing insertion of a 5 mm optical port under direct visualization without difficulty. A pneumoperitoneum was created. A site was selected in the left lower quadrant approximately 8 to 10 cm lateral to the optical port and 4 to 5 cm below where an 8 mm incision was made in the transverse plane allowing insertion of an 8 mm optical port under direct visualization without difficulty. A similar matching port was placed with a 5 mm optical trocar in the right lower quadrant. Grasper was placed through the right lower quadrant trocar and the fimbriated end of the left fallopian tube was grasped and elevated allowing the tube to be removed from its underlying tissues with a LigaSure device without difficulty. The tube was removed through the trocar and given for pathology. A similar operation was carried out on the right side without difficulty and the tube similarly removed through the trocar. The tubes were placed in a single specimen cup. There was a small point of bleeding at the right cornu of the uterus which was made hemostatic with cautery and then surgical powder applied. The upper abdomen was entirely normal as noted above. There is no evidence of endometriosis throughout. All the instrumentation was then removed and the pneumoperitoneum evacuated through the 3 trocars and the trocars removed. The skin was closed with interrupted subcuticular stitches of 4-0 Vicryl followed by half-inch Steri-Strips placed with Mastisol. The 3 incisions were infused with a total of 10 mL of quarter percent Marcaine without epinephrine. Estimated blood loss for the case was 5 mL or less. There were no complications. All sponge, instrument, and needle counts were correct. The patient tolerated the procedure well and proceeded to the recovery room in stable condition.
[2024-09-29 09:51] VITALS: RESP 16
[2024-09-29 10:09] VITALS: BP 102/65; PULSE 85
== END 2024-09-29 10:32 | disposition home or self-care (01) ==
LOC: OR 06:05
PROVIDERS: ATTEND Obstetrics & Gynecology
DX: Z30.2 Encounter for sterilization (principal); Z64.1 Problems related to multiparity; J45.909 Unspecified asthma, uncomplicated; L30.9 Dermatitis, unspecified; G43.909 Migraine, unspecified, not intractable, without status migrainosus; F90.9 Attention-deficit hyperactivity disorder, unspecified type; Z79.899 Other long term (current) drug therapy
CPT/HCPCS: 58661; 81025; 88302; J0330; J1100; J2710; J2405; J2003; J3010; J1885; J2704; J1171; J0665; J1596; J1308